=== PATIENT | male | born 1940 | race Caucasian/White ===

== ENCOUNTER → 2016-08-18 | Outpatient (CLI) | payer MEDICARE, OTHER ==
[~2016-08-18] MED LIST: ASPI81TA27 PO; IOHEXOL 350 MG/ML 100ML IJ ONE; LOSA50TA26 PO; READI-CAT 2 (BARIUM SULF)(VANILLA SMOOTHIE) 450ML ONE; SIMV-13 PO; TICA90TA PO; [UNRECOGNIZED DRUG - CODE] PO
[2016-08-18 09:35] VITALS: BP 143/80
[2016-08-18 10:30] VITALS: BP 136/71
== END | disposition home or self-care (01) ==
LOC: Rad HDHVI 08:59
PROVIDERS: ATTEND Internal Medicine Cardiovascular Disease
DX: N40.0 Benign prostatic hyperplasia without lower urinary tract symptoms (principal); I70.8 Atherosclerosis of other arteries
CPT/HCPCS: 74177; 96374; G0463; Q9967

== ENCOUNTER → 2016-10-22 | Outpatient (CLI) | payer MEDICARE, OTHER ==
[~2016-10-22] MED LIST changes: -IOHEXOL 350 MG/ML 100ML IJ ONE; -READI-CAT 2 (BARIUM SULF)(VANILLA SMOOTHIE) 450ML ONE
== END | disposition home or self-care (01) ==
LOC: Rad HDHVI 11:43
PROVIDERS: ATTEND Internal Medicine Cardiovascular Disease
DX: I70.0 Atherosclerosis of aorta (principal); M25.551 Pain in right hip; M47.816 Spondylosis without myelopathy or radiculopathy, lumbar region; M13.851 Other specified arthritis, right hip; I25.10 Atherosclerotic heart disease of native coronary artery without angina pectoris; E78.5 Hyperlipidemia, unspecified; I10 Essential (primary) hypertension; Z95.5 Presence of coronary angioplasty implant and graft; Z95.1 Presence of aortocoronary bypass graft
CPT/HCPCS: 71020

== ENCOUNTER → 2016-11-24 | Outpatient (CLI) | payer MEDICARE, OTHER ==
[~2016-11-24] VITALS: Ht 165.1 cm; Wt 83.0 kg
[2016-11-24 12:26] LABS: Basophils # (auto) 0.1 uL; Basophils % (auto) 0.9 % (0.0-2.0); CONDITION Y; Eosinophils # (auto) 0 uL; Eosinophils % (auto) 0.6 % (0.0-7.0); Hematocrit 39.8 % (41.0-53.0); Hemoglobin 13.6 g/dL (13.5-17.5); Lymphocytes # (auto) 1.2 uL; Lymphocytes % (auto) 17.8 % (10.0-50.0); Mean Corpuscular Hemoglobin 31.4 pg (28.0-32.0); Mean Corpuscular Hgb Conc. 34.3 g/dL (32.0-36.0); Mean Corpuscular Volume 91.4 fL (80.0-100.0); Monocytes # (auto) 0.5 uL; Monocytes % (auto) 6.7 % (0.0-12.0); Neutrophils # (auto) 5.1 uL; Platelet Count (auto) 152 10^3/uL (140-450); White Blood Cell 6.9 10^3/uL (4.4-10.8)
[2016-11-24 13:11] LABS: Albumin 3.7 g/dL (3.4-5.0); BUN/Creatinine Ratio 22.5; Bilirubin, Total 0.6 mg/dL (0.2-1.0); Calcium 9.2 mg/dL (8.5-10.1); Potassium 4.1 mmol/L (3.5-5.1); Total Protein 7.3 g/dL (6.4-8.2)
== END | disposition home or self-care (01) ==
LOC: Rad HDHVI 08:35
PROVIDERS: ATTEND Internal Medicine Cardiovascular Disease
DX: I10 Essential (primary) hypertension (principal); E78.00 Pure hypercholesterolemia, unspecified; E11.9 Type 2 diabetes mellitus without complications; R97.20 Elevated prostate specific antigen [PSA]; R53.81 Other malaise; E03.9 Hypothyroidism, unspecified; D64.9 Anemia, unspecified; E55.9 Vitamin D deficiency, unspecified; I25.2 Old myocardial infarction; I25.10 Atherosclerotic heart disease of native coronary artery without angina pectoris; K74.1 Hepatic sclerosis
CPT/HCPCS: 36415; 78452; 80053; 80061; 82306; 82607; 83036; 84153; 84402; 84403; 84439; 84443; 85025; 93017; 96374; A9500

== ENCOUNTER → 2017-03-17 | Outpatient (CLI) | payer MEDICARE, OTHER ==
[~2017-03-17] VITALS: Ht 165.1 cm; Wt 81.2 kg
== END | disposition home or self-care (01) ==
LOC: Rad HDHVI 13:47
PROVIDERS: ATTEND Internal Medicine Cardiovascular Disease
DX: I25.2 Old myocardial infarction (principal); I25.10 Atherosclerotic heart disease of native coronary artery without angina pectoris; Z95.1 Presence of aortocoronary bypass graft; I50.9 Heart failure, unspecified
CPT/HCPCS: 78452; 93017; 96374; A9500

== ENCOUNTER → 2017-04-13 | Outpatient (CLI) | payer MEDICARE, OTHER ==
[~2017-04-13] MED LIST changes: +OMEP20CA74 PO; +TRAM50TA2 PO; +[UNRECOGNIZED DRUG - CODE] PO
[2017-04-13 08:55] VITALS: BP 129/64
[2017-04-13 09:30] VITALS: BP 141/68
[2017-04-13 13:15] LABS: Basophils # (auto) 0 uL; Basophils % (auto) 0.3 % (0.0-2.0); Eosinophils # (auto) 0 uL; Eosinophils % (auto) 0.4 % (0.0-7.0); Hemoglobin 13.6 g/dL (13.5-17.5); Lymphocytes # (auto) 0.9 uL; Lymphocytes % (auto) 13.7 % (10.0-50.0); Mean Corpuscular Hgb Conc. 34.9 g/dL (32.0-36.0); Mean Corpuscular Volume 91.7 fL (80.0-100.0); Mean Platelet Volume 10.5 fL (6.9-10.8); Monocytes # (auto) 0.6 uL; Monocytes % (auto) 9.5 % (0.0-12.0); Neutrophils # (auto) 4.9 uL; Neutrophils % (auto) 76.1 % (37.0-80.0); Nucleated Red Blood Cells % 0.3 %; Platelet Count (auto) 103 10^3/uL (140-450); White Blood Cell 6.5 10^3/uL (4.4-10.8)
[2017-04-13 13:25] LABS: Potassium 4.2 mmol/L (3.5-5.1)
[2017-04-13 13:29] LABS: INR 0.98 (0.9-1.15); Partial Thromboplastin Time 26.9 sec (22.64-33.71); Prothrombin Time 10.7 sec (9.37-12.3)
[2017-04-13 13:31] LABS: BUN/Creatinine Ratio 17.6; Calcium 8.5 mg/dL (8.5-10.1)
== END | disposition home or self-care (01) ==
LOC: Rad HDHVI 08:36
PROVIDERS: ATTEND Internal Medicine Cardiovascular Disease
DX: Z01.818 Encounter for other preprocedural examination (principal); I10 Essential (primary) hypertension; D64.9 Anemia, unspecified; E78.00 Pure hypercholesterolemia, unspecified; R79.1 Abnormal coagulation profile; Z95.1 Presence of aortocoronary bypass graft
CPT/HCPCS: 36415; 71020; 80048; 85025; 85610; 85730; 93005; G0463

== ENCOUNTER → 2017-07-24 | Outpatient (CLI) | payer MEDICARE, OTHER ==
[~2017-07-24] MED LIST changes: +CHOL20007 OR; +CLOP75TA28 PO; +DEXL60CA3 PO; +OMEG100078 PO; -SIMV-13 PO; -[UNRECOGNIZED DRUG - CODE] PO
[2017-07-24 09:00] VITALS: BP 139/70
[2017-07-24 09:30] VITALS: BP 151/68
[2017-07-24 12:11] LABS: Basophils # (auto) 0.1 uL; Basophils % (auto) 1.1 % (0.0-2.0); Eosinophils # (auto) 0 uL; Eosinophils % (auto) 0.6 % (0.0-7.0); Hematocrit 38.1 % (41.0-53.0); Hemoglobin 12.7 g/dL (13.5-17.5); Lymphocytes # (auto) 1.1 uL; Lymphocytes % (auto) 18.7 % (10.0-50.0); Mean Corpuscular Hemoglobin 30.9 pg (28.0-32.0); Mean Corpuscular Hgb Conc. 33.3 g/dL (32.0-36.0); Mean Corpuscular Volume 92.9 fL (80.0-100.0); Monocytes # (auto) 0.6 uL; Monocytes % (auto) 10.1 % (0.0-12.0); Neutrophils # (auto) 4.2 uL; Neutrophils % (auto) 69.5 % (37.0-80.0); Nucleated Red Blood Cells % 0.3 %; Platelet Count (auto) 90 10^3/uL (140-450); Red Cell Distribution Width 12.7 % (11.8-14.3)
[2017-07-24 12:20] LABS: INR 1.02 (0.9-1.15); Partial Thromboplastin Time 27.2 sec (22.64-33.71); Prothrombin Time 11.1 sec (9.37-12.3)
[2017-07-24 13:00] LABS: BUN/Creatinine Ratio 15.4; Calcium 8.5 mg/dL (8.5-10.1); Potassium 4.2 mmol/L (3.5-5.1)
== END | disposition home or self-care (01) ==
LOC: Rad HDHVI 08:49
PROVIDERS: ATTEND Internal Medicine Cardiovascular Disease
DX: Z01.818 Encounter for other preprocedural examination (principal); D64.9 Anemia, unspecified; I10 Essential (primary) hypertension; R79.1 Abnormal coagulation profile
CPT/HCPCS: 36415; 71046; 80048; 85025; 85610; 85730; 93005; G0463

== ENCOUNTER 2017-07-28 10:48 | Day surgery (SDC) | payer MEDICARE, OTHER ==
[~2017-07-28] VITALS: Ht 165.1 cm; Wt 80.3 kg
[~2017-07-28 10:48] MED LIST changes: -OMEP20CA74 PO; -TICA90TA PO; -TRAM50TA2 PO
[2017-07-28] MEDS ORDERED: IODIXANOL 320MG/ML 100ML BTL IV ONE (11:18)
[2017-07-28] MEDS ORDERED: LIDOCAINE HCL 2 %PF INJ 10ML AMP IJ ONE (11:21)
[2017-07-28] MEDS ORDERED: fentaNYL CITRATE 100 MCG/2 ML VL ONE (12:29)
[2017-07-28] MEDS ORDERED: ANGIOMAX 250 MG VIAL IV ONE (12:29)
[2017-07-28] MEDS ORDERED: MIDAZOLAM HCL 1MG/1ML-2 ML VIAL ONE ×2 (12:30→13:39)
[2017-07-28] MEDS ORDERED: SODIUM CHL 0.9% 0 ML ONE (12:30)
[2017-07-28] MEDS ORDERED: ENOXAPARIN SOD 30 MG/0.3 ML SYRINGE ONE (13:36)
[2017-07-28] MEDS ORDERED: RIVAROXABAN 10 MG PO STA (14:05)
[2017-07-28] MEDS ORDERED: RIVAROXABAN 10 MG TAB PO STA (14:11)
[2017-07-28] MEDS ORDERED: AMIODARONE HCL 200 MG TAB PO ONE (14:15)
[2017-07-28] MEDS: SODIUM CHLORIDE 0.9% 1,000 ML IV SCH ×2 (14:28→14:37)
== END 2017-07-28 16:00 | disposition home or self-care (01) ==
LOC: CATH 10:48
PROVIDERS: ATTEND Internal Medicine Cardiovascular Disease
DX: I25.10 Atherosclerotic heart disease of native coronary artery without angina pectoris (principal); Z95.1 Presence of aortocoronary bypass graft; I48.91 Unspecified atrial fibrillation; E66.9 Obesity, unspecified; I10 Essential (primary) hypertension; E78.5 Hyperlipidemia, unspecified; I25.2 Old myocardial infarction
CPT/HCPCS: 92960; 93459; C1760; C1894; J1644; J1650; J2250; J3010; J7030; Q9967; 99152

== ENCOUNTER 2017-07-28 22:39 | Emergency (ER) | payer MEDICARE, OTHER ==
[~2017-07-28] VITALS: Ht 167.6 cm; Wt 80.3 kg
[2017-07-28 23:25] LABS: Basophils # (auto) 0.1 uL; Eosinophils # (auto) 0.1 uL; Eosinophils % (auto) 0.7 % (0.0-7.0); Hematocrit 40.3 % (41.0-53.0); Hemoglobin 13.8 g/dL (13.5-17.5); Lymphocytes # (auto) 1.6 uL; Lymphocytes % (auto) 20.7 % (10.0-50.0); Mean Corpuscular Hemoglobin 31.5 pg (28.0-32.0); Mean Corpuscular Hgb Conc. 34.2 g/dL (32.0-36.0); Mean Corpuscular Volume 92.1 fL (80.0-100.0); Monocytes # (auto) 0.7 uL; Monocytes % (auto) 9.7 % (0.0-12.0); Neutrophils # (auto) 5.2 uL; Neutrophils % (auto) 67.9 % (37.0-80.0); Nucleated Red Blood Cells % 0.1 %; Platelet Count (auto) 103 10^3/uL (140-450); Red Blood Cells 4.37 10^6/uL (4.5-5.90); Red Cell Distribution Width 12.9 % (11.8-14.3); White Blood Cell 7.7 10^3/uL (4.4-10.8)
[2017-07-28 23:34] LABS: INR 1.18 (0.9-1.15); Partial Thromboplastin Time 34.1 sec (22.64-33.71); Prothrombin Time 12.9 sec (9.37-12.3)
[2017-07-28 23:41] LABS: Albumin 3.8 g/dL (3.4-5.0); BUN/Creatinine Ratio 13.4; Bilirubin, Total 0.4 mg/dL (0.2-1.0); Calcium 8.3 mg/dL (8.5-10.1); Potassium 3.7 mmol/L (3.5-5.1); Total Protein 7.3 g/dL (6.4-8.2)
[2017-07-29 05:40] VITALS: BP 153/71
== END 2017-07-29 05:40 | disposition home or self-care (01) ==
LOC: ER 22:43
DX: L76.22 Postprocedural hemorrhage of skin and subcutaneous tissue following other procedure (principal); I25.2 Old myocardial infarction; E78.5 Hyperlipidemia, unspecified; Z86.73 Personal history of transient ischemic attack (TIA), and cerebral infarction without residual deficits; Z95.1 Presence of aortocoronary bypass graft; Z98.61 Coronary angioplasty status; Z79.899 Other long term (current) drug therapy
CPT/HCPCS: 36415; 80053; 85025; 85610; 85730

== ENCOUNTER → 2017-08-19 | Outpatient (CLI) | payer MEDICARE, OTHER | END | disposition home or self-care (01) | LOC: Rad HDHVI 13:01 | PROVIDERS: ATTEND Internal Medicine Cardiovascular Disease | DX: I67.2 Cerebral atherosclerosis (principal); I67.82 Cerebral ischemia; I10 Essential (primary) hypertension; E78.5 Hyperlipidemia, unspecified; Z79.899 Other long term (current) drug therapy | CPT/HCPCS: 70450 ==

== ENCOUNTER → 2017-12-21 | Outpatient (CLI) | payer MEDICARE, OTHER ==
[2017-12-21 11:00] VITALS: BP 161/86
[2017-12-21 11:05] VITALS: BP 167/99
[2017-12-21 12:10] VITALS: BP 161/86
[2017-12-21 14:58] VITALS: BP 167/99
== END | disposition home or self-care (01) ==
LOC: CHF HDHVI 09:47
PROVIDERS: ATTEND Internal Medicine Cardiovascular Disease
DX: I25.118 Atherosclerotic heart disease of native coronary artery with other forms of angina pectoris (principal); I50.33 Acute on chronic diastolic (congestive) heart failure
CPT/HCPCS: G0166; G0463

== ENCOUNTER → 2017-12-22 | Outpatient (CLI) | payer MEDICARE, OTHER ==
[2017-12-22 10:15] VITALS: BP 141/69
[2017-12-22 11:22] VITALS: BP 151/92
== END | disposition home or self-care (01) ==
LOC: CHF HDHVI 09:52
PROVIDERS: ATTEND Internal Medicine Cardiovascular Disease
DX: I25.118 Atherosclerotic heart disease of native coronary artery with other forms of angina pectoris (principal); I50.33 Acute on chronic diastolic (congestive) heart failure; I50.23 Acute on chronic systolic (congestive) heart failure
CPT/HCPCS: G0166

== ENCOUNTER → 2017-12-23 | Outpatient (CLI) | payer MEDICARE, OTHER ==
[2017-12-23 10:05] VITALS: BP 158/75
[2017-12-23 11:16] VITALS: BP 147/88
== END | disposition home or self-care (01) ==
LOC: CHF HDHVI 09:55
PROVIDERS: ATTEND Internal Medicine Cardiovascular Disease
DX: I25.118 Atherosclerotic heart disease of native coronary artery with other forms of angina pectoris (principal); I11.0 Hypertensive heart disease with heart failure; I50.43 Acute on chronic combined systolic (congestive) and diastolic (congestive) heart failure
CPT/HCPCS: G0166

== ENCOUNTER → 2017-12-24 | Outpatient (CLI) | payer MEDICARE, OTHER ==
[2017-12-24 10:34] VITALS: BP 134/73
[2017-12-24 11:44] VITALS: BP 142/85
== END | disposition home or self-care (01) ==
LOC: CHF HDHVI 09:53
PROVIDERS: ATTEND Internal Medicine Cardiovascular Disease
DX: I25.118 Atherosclerotic heart disease of native coronary artery with other forms of angina pectoris (principal); I50.33 Acute on chronic diastolic (congestive) heart failure; I50.23 Acute on chronic systolic (congestive) heart failure
CPT/HCPCS: G0166

== ENCOUNTER → 2017-12-25 | Outpatient (CLI) | payer MEDICARE, OTHER ==
[2017-12-25 10:17] VITALS: BP 151/80
[2017-12-25 11:27] VITALS: BP 152/81
== END | disposition home or self-care (01) ==
LOC: CHF HDHVI 09:51
PROVIDERS: ATTEND Internal Medicine Cardiovascular Disease
DX: I25.118 Atherosclerotic heart disease of native coronary artery with other forms of angina pectoris (principal); I50.43 Acute on chronic combined systolic (congestive) and diastolic (congestive) heart failure
CPT/HCPCS: G0166

== ENCOUNTER → 2017-12-28 | Outpatient (CLI) | payer MEDICARE, OTHER ==
[2017-12-28 10:09] VITALS: BP 148/80
[2017-12-28 11:13] VITALS: BP 142/79
== END | disposition home or self-care (01) ==
LOC: CHF HDHVI 09:50
PROVIDERS: ATTEND Internal Medicine Cardiovascular Disease
DX: I25.118 Atherosclerotic heart disease of native coronary artery with other forms of angina pectoris (principal); I11.0 Hypertensive heart disease with heart failure; I50.33 Acute on chronic diastolic (congestive) heart failure; I63.9 Cerebral infarction, unspecified; Z98.61 Coronary angioplasty status; Z79.82 Long term (current) use of aspirin; Z79.899 Other long term (current) drug therapy
CPT/HCPCS: G0166

== ENCOUNTER → 2017-12-29 | Outpatient (CLI) | payer MEDICARE, OTHER ==
[2017-12-29 09:59] VITALS: BP 136/85
[2017-12-29 11:05] VITALS: BP 131/84
== END | disposition home or self-care (01) ==
LOC: CHF HDHVI 09:50
PROVIDERS: ATTEND Internal Medicine Cardiovascular Disease
DX: I25.118 Atherosclerotic heart disease of native coronary artery with other forms of angina pectoris (principal); I50.43 Acute on chronic combined systolic (congestive) and diastolic (congestive) heart failure; I63.9 Cerebral infarction, unspecified
CPT/HCPCS: G0166

== ENCOUNTER → 2017-12-30 | Outpatient (CLI) | payer MEDICARE, OTHER ==
[2017-12-30 09:54] VITALS: BP 146/82
[2017-12-30 11:05] VITALS: BP 145/85
== END | disposition home or self-care (01) ==
LOC: CHF HDHVI 09:48
PROVIDERS: ATTEND Internal Medicine Cardiovascular Disease
DX: I25.118 Atherosclerotic heart disease of native coronary artery with other forms of angina pectoris (principal); I50.43 Acute on chronic combined systolic (congestive) and diastolic (congestive) heart failure
CPT/HCPCS: G0166

== ENCOUNTER → 2017-12-31 | Outpatient (CLI) | payer MEDICARE, OTHER ==
[2017-12-31 09:55] VITALS: BP 140/70
[2017-12-31 11:05] VITALS: BP 148/74
== END | disposition home or self-care (01) ==
LOC: CHF HDHVI 09:54
PROVIDERS: ATTEND Internal Medicine Cardiovascular Disease
DX: I25.118 Atherosclerotic heart disease of native coronary artery with other forms of angina pectoris (principal); I50.43 Acute on chronic combined systolic (congestive) and diastolic (congestive) heart failure
CPT/HCPCS: G0166

== ENCOUNTER → 2018-01-01 | Outpatient (CLI) | payer MEDICARE, OTHER ==
[2018-01-01 09:58] VITALS: BP 152/74
[2018-01-01 11:02] VITALS: BP 142/73
== END | disposition home or self-care (01) ==
LOC: CHF HDHVI 09:45
PROVIDERS: ATTEND Internal Medicine Cardiovascular Disease
DX: I25.118 Atherosclerotic heart disease of native coronary artery with other forms of angina pectoris (principal); I11.0 Hypertensive heart disease with heart failure; I50.43 Acute on chronic combined systolic (congestive) and diastolic (congestive) heart failure; Z98.61 Coronary angioplasty status; Z87.891 Personal history of nicotine dependence
CPT/HCPCS: G0166

== ENCOUNTER → 2018-01-04 | Outpatient (CLI) | payer MEDICARE, OTHER ==
[2018-01-04 09:57] VITALS: BP 144/73
[2018-01-04 10:58] VITALS: BP 148/79
== END | disposition home or self-care (01) ==
LOC: CHF HDHVI 10:02
PROVIDERS: ATTEND Internal Medicine Cardiovascular Disease
DX: I25.118 Atherosclerotic heart disease of native coronary artery with other forms of angina pectoris (principal); I11.0 Hypertensive heart disease with heart failure; I50.43 Acute on chronic combined systolic (congestive) and diastolic (congestive) heart failure; I63.9 Cerebral infarction, unspecified; Z98.61 Coronary angioplasty status
CPT/HCPCS: G0166

== ENCOUNTER → 2018-01-05 | Outpatient (CLI) | payer MEDICARE, OTHER ==
[2018-01-05 09:58] VITALS: BP 154/77
[2018-01-05 11:10] VITALS: BP 160/87
== END | disposition home or self-care (01) ==
LOC: CHF HDHVI 09:48
PROVIDERS: ATTEND Internal Medicine Cardiovascular Disease
DX: I25.118 Atherosclerotic heart disease of native coronary artery with other forms of angina pectoris (principal); I11.0 Hypertensive heart disease with heart failure; I50.43 Acute on chronic combined systolic (congestive) and diastolic (congestive) heart failure; I63.9 Cerebral infarction, unspecified; Z98.61 Coronary angioplasty status
CPT/HCPCS: G0166

== ENCOUNTER → 2018-01-06 | Outpatient (CLI) | payer MEDICARE, OTHER ==
[2018-01-06 09:56] VITALS: BP 137/77
[2018-01-06 11:05] VITALS: BP 159/86
== END | disposition home or self-care (01) ==
LOC: CHF HDHVI 09:59
PROVIDERS: ATTEND Internal Medicine Cardiovascular Disease
DX: I25.118 Atherosclerotic heart disease of native coronary artery with other forms of angina pectoris (principal); I50.43 Acute on chronic combined systolic (congestive) and diastolic (congestive) heart failure; I63.9 Cerebral infarction, unspecified; Z98.61 Coronary angioplasty status
CPT/HCPCS: G0166

== ENCOUNTER → 2018-01-07 | Outpatient (CLI) | payer MEDICARE, OTHER ==
[2018-01-07 09:55] VITALS: BP 147/80
[2018-01-07 11:01] VITALS: BP 164/78
== END | disposition home or self-care (01) ==
LOC: CHF HDHVI 10:00
PROVIDERS: ATTEND Internal Medicine Cardiovascular Disease
DX: I25.118 Atherosclerotic heart disease of native coronary artery with other forms of angina pectoris (principal); I11.0 Hypertensive heart disease with heart failure; I50.41 Acute combined systolic (congestive) and diastolic (congestive) heart failure; I63.9 Cerebral infarction, unspecified; Z98.61 Coronary angioplasty status
CPT/HCPCS: G0166

== ENCOUNTER → 2018-01-08 | Outpatient (CLI) | payer MEDICARE, OTHER ==
[2018-01-08 10:19] VITALS: BP 127/72
[2018-01-08 11:28] VITALS: BP 146/85
== END | disposition home or self-care (01) ==
LOC: CHF HDHVI 10:02
PROVIDERS: ATTEND Internal Medicine Cardiovascular Disease
DX: I25.118 Atherosclerotic heart disease of native coronary artery with other forms of angina pectoris (principal); I11.0 Hypertensive heart disease with heart failure; I50.41 Acute combined systolic (congestive) and diastolic (congestive) heart failure; I63.9 Cerebral infarction, unspecified; Z98.61 Coronary angioplasty status
CPT/HCPCS: G0166

== ENCOUNTER → 2018-01-12 | Outpatient (CLI) | payer MEDICARE, OTHER ==
[2018-01-12 09:58] VITALS: BP 122/60
[2018-01-12 10:59] VITALS: BP 139/74
== END | disposition home or self-care (01) ==
LOC: CHF HDHVI 09:50
PROVIDERS: ATTEND Internal Medicine Cardiovascular Disease
DX: I25.118 Atherosclerotic heart disease of native coronary artery with other forms of angina pectoris (principal); I11.0 Hypertensive heart disease with heart failure; I50.43 Acute on chronic combined systolic (congestive) and diastolic (congestive) heart failure; I63.9 Cerebral infarction, unspecified; Z98.61 Coronary angioplasty status
CPT/HCPCS: G0166

== ENCOUNTER → 2018-01-13 | Outpatient (CLI) | payer MEDICARE, OTHER ==
[2018-01-13 09:55] VITALS: BP 122/67
[2018-01-13 11:05] VITALS: BP 141/68
== END | disposition home or self-care (01) ==
LOC: CHF HDHVI 09:50
PROVIDERS: ATTEND Internal Medicine Cardiovascular Disease
DX: I25.118 Atherosclerotic heart disease of native coronary artery with other forms of angina pectoris (principal); I50.43 Acute on chronic combined systolic (congestive) and diastolic (congestive) heart failure; I63.9 Cerebral infarction, unspecified
CPT/HCPCS: G0166

== ENCOUNTER → 2018-01-15 | Outpatient (CLI) | payer MEDICARE, OTHER ==
[2018-01-15 10:15] VITALS: BP 149/71
[2018-01-15 11:19] VITALS: BP 135/78
== END | disposition home or self-care (01) ==
LOC: CHF HDHVI 09:50
PROVIDERS: ATTEND Internal Medicine Cardiovascular Disease
DX: I25.118 Atherosclerotic heart disease of native coronary artery with other forms of angina pectoris (principal); I11.0 Hypertensive heart disease with heart failure; I50.43 Acute on chronic combined systolic (congestive) and diastolic (congestive) heart failure; I63.9 Cerebral infarction, unspecified; Z98.61 Coronary angioplasty status
CPT/HCPCS: G0166

== ENCOUNTER → 2018-01-18 | Outpatient (CLI) | payer MEDICARE, OTHER ==
[2018-01-18 09:56] VITALS: BP 138/68
[2018-01-18 10:56] VITALS: BP 138/77
== END | disposition home or self-care (01) ==
LOC: CHF HDHVI 10:07
PROVIDERS: ATTEND Internal Medicine Cardiovascular Disease
DX: I25.118 Atherosclerotic heart disease of native coronary artery with other forms of angina pectoris (principal); I50.43 Acute on chronic combined systolic (congestive) and diastolic (congestive) heart failure; I63.9 Cerebral infarction, unspecified; Z98.61 Coronary angioplasty status
CPT/HCPCS: G0166

== ENCOUNTER → 2018-01-19 | Outpatient (CLI) | payer MEDICARE, OTHER ==
[2018-01-19 09:55] VITALS: BP 167/76
[2018-01-19 10:55] VITALS: BP 159/81
== END | disposition home or self-care (01) ==
LOC: CHF HDHVI 09:47
PROVIDERS: ATTEND Internal Medicine Cardiovascular Disease
DX: I25.118 Atherosclerotic heart disease of native coronary artery with other forms of angina pectoris (principal); I63.9 Cerebral infarction, unspecified; I11.0 Hypertensive heart disease with heart failure; I50.43 Acute on chronic combined systolic (congestive) and diastolic (congestive) heart failure
CPT/HCPCS: G0166

== ENCOUNTER → 2018-01-20 | Outpatient (CLI) | payer MEDICARE, OTHER ==
[2018-01-20 09:50] VITALS: BP 145/74
[2018-01-20 11:00] VITALS: BP 160/76
== END | disposition home or self-care (01) ==
LOC: CHF HDHVI 10:17
PROVIDERS: ATTEND Internal Medicine Cardiovascular Disease
DX: I25.118 Atherosclerotic heart disease of native coronary artery with other forms of angina pectoris (principal); I11.0 Hypertensive heart disease with heart failure; I50.43 Acute on chronic combined systolic (congestive) and diastolic (congestive) heart failure; I63.9 Cerebral infarction, unspecified; Z98.61 Coronary angioplasty status
CPT/HCPCS: G0166

== ENCOUNTER → 2018-01-21 | Outpatient (CLI) | payer MEDICARE, OTHER ==
[2018-01-21 09:53] VITALS: BP 137/72
[2018-01-21 10:58] VITALS: BP 151/82
== END | disposition home or self-care (01) ==
LOC: CHF HDHVI 09:48
PROVIDERS: ATTEND Internal Medicine Cardiovascular Disease
DX: I25.118 Atherosclerotic heart disease of native coronary artery with other forms of angina pectoris (principal); I11.0 Hypertensive heart disease with heart failure; I50.43 Acute on chronic combined systolic (congestive) and diastolic (congestive) heart failure; I63.9 Cerebral infarction, unspecified; Z98.61 Coronary angioplasty status
CPT/HCPCS: G0166

== ENCOUNTER → 2018-01-22 | Outpatient (CLI) | payer MEDICARE, OTHER ==
[2018-01-22 10:34] VITALS: BP 135/72
[2018-01-22 11:42] VITALS: BP 155/77
== END | disposition home or self-care (01) ==
LOC: CHF HDHVI 10:27
PROVIDERS: ATTEND Internal Medicine Cardiovascular Disease
DX: I25.118 Atherosclerotic heart disease of native coronary artery with other forms of angina pectoris (principal); I11.0 Hypertensive heart disease with heart failure; I50.42 Chronic combined systolic (congestive) and diastolic (congestive) heart failure; I63.9 Cerebral infarction, unspecified; Z98.61 Coronary angioplasty status
CPT/HCPCS: G0166

== ENCOUNTER → 2018-01-25 | Outpatient (CLI) | payer MEDICARE, OTHER ==
[2018-01-25 10:05] VITALS: BP 136/76
[2018-01-25 11:05] VITALS: BP 131/74
== END | disposition home or self-care (01) ==
LOC: CHF HDHVI 09:55
PROVIDERS: ATTEND Internal Medicine Cardiovascular Disease
DX: I25.118 Atherosclerotic heart disease of native coronary artery with other forms of angina pectoris (principal); I50.43 Acute on chronic combined systolic (congestive) and diastolic (congestive) heart failure; Z98.61 Coronary angioplasty status; Z86.73 Personal history of transient ischemic attack (TIA), and cerebral infarction without residual deficits
CPT/HCPCS: G0166

== ENCOUNTER → 2018-01-26 | Outpatient (CLI) | payer MEDICARE, OTHER ==
[2018-01-26 09:51] VITALS: BP 130/73
[2018-01-26 10:58] VITALS: BP 154/80
== END | disposition home or self-care (01) ==
LOC: CHF HDHVI 09:47
PROVIDERS: ATTEND Internal Medicine Cardiovascular Disease
DX: I25.118 Atherosclerotic heart disease of native coronary artery with other forms of angina pectoris (principal); I50.43 Acute on chronic combined systolic (congestive) and diastolic (congestive) heart failure; Z98.61 Coronary angioplasty status; Z86.73 Personal history of transient ischemic attack (TIA), and cerebral infarction without residual deficits
CPT/HCPCS: G0166

== ENCOUNTER → 2018-01-27 | Outpatient (CLI) | payer MEDICARE, OTHER ==
[2018-01-27 09:54] VITALS: BP 156/89
[2018-01-27 11:00] VITALS: BP 142/74
== END | disposition home or self-care (01) ==
LOC: CHF HDHVI 09:48
PROVIDERS: ATTEND Internal Medicine Cardiovascular Disease
DX: I25.118 Atherosclerotic heart disease of native coronary artery with other forms of angina pectoris (principal); I50.43 Acute on chronic combined systolic (congestive) and diastolic (congestive) heart failure; I63.9 Cerebral infarction, unspecified
CPT/HCPCS: G0166

== ENCOUNTER → 2018-01-28 | Outpatient (CLI) | payer MEDICARE, OTHER ==
[2018-01-28 10:05] VITALS: BP 132/78
[2018-01-28 11:14] VITALS: BP 160/76
== END | disposition home or self-care (01) ==
LOC: CHF HDHVI 09:41
PROVIDERS: ATTEND Internal Medicine Cardiovascular Disease
DX: I25.118 Atherosclerotic heart disease of native coronary artery with other forms of angina pectoris (principal); I50.43 Acute on chronic combined systolic (congestive) and diastolic (congestive) heart failure; I63.9 Cerebral infarction, unspecified
CPT/HCPCS: G0166

== ENCOUNTER → 2018-01-29 | Outpatient (CLI) | payer MEDICARE, OTHER ==
[2018-01-29 10:26] VITALS: BP 131/81
[2018-01-29 11:36] VITALS: BP 160/82
== END | disposition home or self-care (01) ==
LOC: CHF HDHVI 10:29
PROVIDERS: ATTEND Internal Medicine Cardiovascular Disease
DX: I25.118 Atherosclerotic heart disease of native coronary artery with other forms of angina pectoris (principal); I50.43 Acute on chronic combined systolic (congestive) and diastolic (congestive) heart failure; I63.9 Cerebral infarction, unspecified
CPT/HCPCS: G0166

== ENCOUNTER → 2018-02-01 | Outpatient (CLI) | payer MEDICARE, OTHER ==
[2018-02-01 09:58] VITALS: BP 149/73
[2018-02-01 11:08] VITALS: BP 147/71
== END | disposition home or self-care (01) ==
LOC: CHF HDHVI 10:01
PROVIDERS: ATTEND Internal Medicine Cardiovascular Disease
DX: I25.118 Atherosclerotic heart disease of native coronary artery with other forms of angina pectoris (principal); I50.43 Acute on chronic combined systolic (congestive) and diastolic (congestive) heart failure; I63.9 Cerebral infarction, unspecified
CPT/HCPCS: G0166

== ENCOUNTER → 2018-02-02 | Outpatient (CLI) | payer MEDICARE, OTHER ==
[2018-02-02 09:59] VITALS: BP 152/78
[2018-02-02 11:05] VITALS: BP 153/82
== END | disposition home or self-care (01) ==
LOC: CHF HDHVI 09:54
PROVIDERS: ATTEND Internal Medicine Cardiovascular Disease
DX: I25.118 Atherosclerotic heart disease of native coronary artery with other forms of angina pectoris (principal); I50.42 Chronic combined systolic (congestive) and diastolic (congestive) heart failure; I21.9 Acute myocardial infarction, unspecified; I63.9 Cerebral infarction, unspecified
CPT/HCPCS: G0166

== ENCOUNTER → 2018-02-03 | Outpatient (CLI) | payer MEDICARE, OTHER ==
[2018-02-03 11:30] VITALS: BP 162/81
[2018-02-03 12:37] VITALS: BP 159/89
== END | disposition home or self-care (01) ==
LOC: CHF HDHVI 09:43
PROVIDERS: ATTEND Internal Medicine Cardiovascular Disease
DX: I25.118 Atherosclerotic heart disease of native coronary artery with other forms of angina pectoris (principal); I50.43 Acute on chronic combined systolic (congestive) and diastolic (congestive) heart failure; I63.9 Cerebral infarction, unspecified
CPT/HCPCS: G0166

== ENCOUNTER → 2018-02-04 | Outpatient (CLI) | payer MEDICARE, OTHER ==
[2018-02-04 09:56] VITALS: BP 160/85
[2018-02-04 11:01] VITALS: BP 161/78
== END | disposition home or self-care (01) ==
LOC: CHF HDHVI 09:52
PROVIDERS: ATTEND Internal Medicine Cardiovascular Disease
DX: I25.118 Atherosclerotic heart disease of native coronary artery with other forms of angina pectoris (principal); I50.43 Acute on chronic combined systolic (congestive) and diastolic (congestive) heart failure; Z98.61 Coronary angioplasty status; Z86.73 Personal history of transient ischemic attack (TIA), and cerebral infarction without residual deficits; Z87.891 Personal history of nicotine dependence
CPT/HCPCS: G0166

== ENCOUNTER → 2018-02-05 | Outpatient (CLI) | payer MEDICARE, OTHER ==
[2018-02-05 10:32] VITALS: BP 140/81
[2018-02-05 11:37] VITALS: BP 156/74
== END | disposition home or self-care (01) ==
LOC: CHF HDHVI 10:39
PROVIDERS: ATTEND Internal Medicine Cardiovascular Disease
DX: I25.118 Atherosclerotic heart disease of native coronary artery with other forms of angina pectoris (principal); I11.0 Hypertensive heart disease with heart failure; I50.43 Acute on chronic combined systolic (congestive) and diastolic (congestive) heart failure; E78.5 Hyperlipidemia, unspecified; I25.2 Old myocardial infarction; Z98.61 Coronary angioplasty status; Z86.73 Personal history of transient ischemic attack (TIA), and cerebral infarction without residual deficits
CPT/HCPCS: G0166

== ENCOUNTER → 2018-02-08 | Outpatient (CLI) | payer MEDICARE, OTHER ==
[2018-02-08 10:03] VITALS: BP 145/85
[2018-02-08 11:15] VITALS: BP 156/75
== END | disposition home or self-care (01) ==
LOC: Rad HDHVI 09:41
PROVIDERS: ATTEND Internal Medicine Cardiovascular Disease
DX: I25.118 Atherosclerotic heart disease of native coronary artery with other forms of angina pectoris (principal); I11.0 Hypertensive heart disease with heart failure; I50.43 Acute on chronic combined systolic (congestive) and diastolic (congestive) heart failure; I63.9 Cerebral infarction, unspecified; Z98.61 Coronary angioplasty status
CPT/HCPCS: G0166

== ENCOUNTER → 2018-02-09 | Outpatient (CLI) | payer MEDICARE, OTHER ==
[2018-02-09 13:14] VITALS: BP 156/86
[2018-02-09 14:19] VITALS: BP 153/81
== END | disposition home or self-care (01) ==
LOC: Rad HDHVI 13:00
PROVIDERS: ATTEND Internal Medicine Cardiovascular Disease
DX: I25.118 Atherosclerotic heart disease of native coronary artery with other forms of angina pectoris (principal); I11.0 Hypertensive heart disease with heart failure; I50.43 Acute on chronic combined systolic (congestive) and diastolic (congestive) heart failure; I63.9 Cerebral infarction, unspecified; Z98.61 Coronary angioplasty status
CPT/HCPCS: G0166

== ENCOUNTER → 2018-05-06 | Outpatient (CLI) | payer MEDICARE, OTHER | END | disposition home or self-care (01) | LOC: Rad HDHVI 08:50 | PROVIDERS: ATTEND Internal Medicine Cardiovascular Disease | DX: I08.8 Other rheumatic multiple valve diseases (principal); I10 Essential (primary) hypertension; I25.5 Ischemic cardiomyopathy; I48.0 Paroxysmal atrial fibrillation | CPT/HCPCS: 93306 ==

== ENCOUNTER → 2018-07-09 | Outpatient (CLI) | payer MEDICARE, OTHER ==
[2018-07-09 15:57] LABS: Basophils # (auto) 0 uL; Basophils % (auto) 0.3 % (0.0-2.0); Calcium 8.9 mg/dL (8.5-10.1); Eosinophils # (auto) 0.1 uL; Eosinophils % (auto) 0.9 % (0.0-7.0); Hematocrit 44.1 % (41.0-53.0); Hemoglobin 14.6 g/dL (13.5-17.5); Lymphocytes # (auto) 1.1 uL; Lymphocytes % (auto) 16.6 % (10.0-50.0); Mean Corpuscular Hemoglobin 30.8 pg (28.0-32.0); Mean Corpuscular Hgb Conc. 33.2 g/dL (32.0-36.0); Mean Corpuscular Volume 92.9 fL (80.0-100.0); Monocytes # (auto) 0.7 uL; Neutrophils # (auto) 4.8 uL; Neutrophils % (auto) 72.2 % (37.0-80.0); Nucleated Red Blood Cells % 0.3 %; Platelet Count (auto) 109 10^3/uL (140-450); Red Blood Cells 4.75 10^6/uL (4.5-5.90); Red Cell Distribution Width 13.5 % (11.8-14.3); White Blood Cell 6.7 10^3/uL (4.4-10.8)
== END | disposition home or self-care (01) ==
LOC: LAB 11:58
PROVIDERS: ATTEND Internal Medicine Cardiovascular Disease
DX: I11.0 Hypertensive heart disease with heart failure (principal); I50.9 Heart failure, unspecified; D64.9 Anemia, unspecified
CPT/HCPCS: 36415; 80048; 83880; 85025

== ENCOUNTER → 2018-11-29 | Outpatient (CLI) | payer MEDICARE, OTHER ==
[~2018-11-29] MED LIST changes: +ASPI-404 PO; -ASPI81TA27 PO
== END | disposition home or self-care (01) ==
LOC: Rad HDHVI 12:20
PROVIDERS: ATTEND Internal Medicine Cardiovascular Disease
DX: Z01.818 Encounter for other preprocedural examination (principal); I70.0 Atherosclerosis of aorta
CPT/HCPCS: 71046

== ENCOUNTER → 2019-04-25 | Outpatient (CLI) | payer MEDICARE, OTHER ==
[~2019-04-25] MED LIST changes: +[UNRECOGNIZED DRUG - CODE] PO; -[UNRECOGNIZED DRUG - CODE] PO
== END | disposition home or self-care (01) ==
LOC: Rad HDHVI 08:57
PROVIDERS: ATTEND Internal Medicine Cardiovascular Disease
DX: I08.8 Other rheumatic multiple valve diseases (principal); I25.2 Old myocardial infarction; I50.23 Acute on chronic systolic (congestive) heart failure; I48.0 Paroxysmal atrial fibrillation
CPT/HCPCS: 93306

== ENCOUNTER → 2019-04-26 | Outpatient (CLI) | payer MEDICARE, OTHER ==
[~2019-04-26] VITALS: Ht 165.1 cm; Wt 85.3 kg
== END | disposition home or self-care (01) ==
LOC: Rad HDHVI 09:02
PROVIDERS: ATTEND Internal Medicine Cardiovascular Disease
DX: I21.9 Acute myocardial infarction, unspecified (principal); R07.9 Chest pain, unspecified; I10 Essential (primary) hypertension; E78.00 Pure hypercholesterolemia, unspecified; Z95.1 Presence of aortocoronary bypass graft
CPT/HCPCS: 78452; 93017; 96374; A9500

== ENCOUNTER → 2019-10-17 | Outpatient (CLI) | payer MEDICARE, OTHER ==
[~2019-10-17] MED LIST changes: +AZIL40TA2 PO; -CHOL20007 OR; +CHOL20007 PO; +PANT40TA2 PO; +RANO500T2 PO; +RIVA10TA PO; +SIMV-13 PO; +TICA90TA PO; +[UNRECOGNIZED DRUG - CODE] TD
[2019-10-17 10:15] VITALS: BP 141/81
[2019-10-17 10:50] VITALS: BP 135/77
[2019-10-17 12:26] LABS: Basophils # (auto) 0.1 10 ^3/uL (0-0.2); Basophils % (auto) 0.8 % (0.0-2.0); Eosinophils # (auto) 0 10 ^3/uL (0-0.8); Eosinophils % (auto) 0.4 % (0.0-7.0); Hematocrit 41.9 % (41.0-53.0); Hemoglobin 14.7 g/dL (13.5-17.5); Lymphocytes # (auto) 1.4 10 ^3/uL (0.4-5.4); Lymphocytes % (auto) 17.3 % (10.0-50.0); Mean Corpuscular Hemoglobin 32.5 pg (28.0-32.0); Mean Corpuscular Hgb Conc. 35.1 g/dL (32.0-36.0); Mean Corpuscular Volume 92.6 fL (80.0-100.0); Monocytes # (auto) 0.8 10 ^3/uL (0-1.3); Monocytes % (auto) 10.3 % (0.0-12.0); Neutrophils # (auto) 5.6 10 ^3/uL (1.6-8.6); Neutrophils % (auto) 71.2 % (37.0-80.0); Nucleated Red Blood Cells % 0.1 %; Platelet Count (auto) 134 10^3/uL (140-450); Red Blood Cells 4.52 10^6/uL (4.5-5.90); Red Cell Distribution Width 13.5 % (11.8-14.3); White Blood Cell 7.9 10^3/uL (4.4-10.8)
[2019-10-17 12:35] LABS: INR 1.26 (0.9-1.15)
[2019-10-17 12:42] LABS: Potassium 3.9 mmol/L (3.5-5.1)
[2019-10-17 16:29] LABS: BUN/Creatinine Ratio 17.8
[2019-10-17 16:30] LABS: Calcium 8.6 mg/dL (8.5-10.1)
== END | disposition home or self-care (01) ==
LOC: Rad HDHVI 10:05
PROVIDERS: ATTEND Internal Medicine Cardiovascular Disease
DX: I50.9 Heart failure, unspecified (principal); Z01.812 Encounter for preprocedural laboratory examination; I10 Essential (primary) hypertension; I20.9 Angina pectoris, unspecified; I48.91 Unspecified atrial fibrillation; M79.89 Other specified soft tissue disorders
CPT/HCPCS: 36415; 71046; 80048; 85025; 85610; 85730; 93005; G0463

== ENCOUNTER 2019-10-20 07:02 | Inpatient (IN) | payer MEDICARE, OTHER ==
[~2019-10-20] VITALS: Ht 317.5 cm; Wt 81.5 kg
[~2019-10-20 07:02] MED LIST changes: -CLOP75TA28 PO; -DEXL60CA3 PO; -LOSA50TA26 PO; -TICA90TA PO
[2019-10-20] MEDS ORDERED: MIDAZOLAM HCL 1MG/1ML-2 ML VIAL ONE (08:27)
[2019-10-20] MEDS ORDERED: ANGIOMAX 250 MG VIAL IV ONE (08:27)
[2019-10-20] MEDS ORDERED: fentaNYL CITRATE 100 MCG/2 ML VL ONE (08:27)
[2019-10-20] MEDS ORDERED: SODIUM CHL 0.9% 50 ML ONE (08:27)
[2019-10-20] MEDS ORDERED: IOHEXOL 350 MG/ML 100ML IJ ONE (09:07)
[2019-10-20] MEDS ORDERED: DOPamine 1600MCG/ML D5W 0 ML IV ONE (09:21)
[2019-10-20] MEDS ORDERED: PHENYLEPHRINE HCL 10 MG/ML VL ONE (09:21)
[2019-10-20] MEDS ORDERED: TICAGRELOR 90 MG TAB ONE (09:37)
[2019-10-20] MEDS ORDERED: SODIUM CHLORIDE 0.9% 1,000 ML IV SCH (10:39)
[2019-10-20] MEDS ORDERED: ACETAMINOPHEN 500 MG TAB PO PRN (10:45)
[2019-10-20] MEDS ORDERED: HYDROcodone-ACET 5/325MG TAB PO PRN (10:45)
[2019-10-20] MEDS ORDERED: NITROGLYCERIN 0.4 MG SL TAB SL PRN (10:45)
[2019-10-20] MEDS ORDERED: MORPHINE SULF INJ 2 MG/ML SYRINGE 1ML IV PRN (10:45)
[2019-10-20] MEDS ORDERED: ONDANSETRON HCL 4 MG/2 ML VIAL IV PRN (10:45)
[2019-10-20 13:09] VITALS: BP 137/90
[2019-10-20 14:37] VITALS: BP 137/90
[2019-10-20 17:39] VITALS: BP 128/89
[2019-10-20] MEDS: RANOLAZINE ER 500 MG TAB PO SCH (21:43)
[2019-10-20] MEDS: NITROGLYCERIN PO SCH (21:49)
[2019-10-20] MEDS ORDERED: ATORVASTATIN 20 MG TAB PO SCH (22:00)
[2019-10-20] MEDS ORDERED: cloNIDine HCL 0.1 MG TAB PO PRN (22:15)
[2019-10-20 22:40] VITALS: BP 160/86
[2019-10-21 05:00] VITALS: BP 148/73
[2019-10-21] MEDS: RANOLAZINE ER 500 MG TAB PO SCH (09:02)
[2019-10-21] MEDS: NITROGLYCERIN PO SCH (09:05)
[2019-10-21] MEDS ORDERED: AZILSARTAN MEDOXOMIL CHLORTHAL PO SCH (10:00)
[2019-10-21] MEDS ORDERED: PANTOPRAZOLE 40 MG TAB PO SCH (10:00)
[2019-10-21] MEDS ORDERED: TESTOSTERONE 1.62% TD SCH (10:00)
[2019-10-21] MEDS ORDERED: ASPirin-EC 81 mg tab PO SCH (10:00)
[2019-10-21] MEDS ORDERED: CHOLECALCIFEROL (VITD3) 1,000IU=25mCg TAB PO SCH (10:00)
[2019-10-21 12:27] VITALS: BP 129/80
[2019-10-21] MEDS ORDERED: TICA90TA PO (13:49)
[2019-10-21 13:50] VITALS: BP 129/80
== END 2019-10-21 16:55 | disposition home or self-care (01) | DRG 246 ==
LOC: CATH 07:02 → TELE-WESTW 11:26
PROVIDERS: ADMIT Internal Medicine Cardiovascular Disease; ATTEND Internal Medicine Cardiovascular Disease
PROC: 027035Z Dilation of Coronary Artery, One Artery with Two Drug-eluting Intraluminal Devices, Percutaneous Approach (ICD-10-PCS; principal; 2019-10-20)
PROC: B2111ZZ Fluoroscopy of Multiple Coronary Arteries using Low Osmolar Contrast (ICD-10-PCS; 2019-10-20)
PROC: B2131ZZ Fluoroscopy of Multiple Coronary Artery Bypass Grafts using Low Osmolar Contrast (ICD-10-PCS; 2019-10-20)
DX: I25.110 Atherosclerotic heart disease of native coronary artery with unstable angina pectoris (principal); I50.21 Acute systolic (congestive) heart failure; Z95.1 Presence of aortocoronary bypass graft; E78.5 Hyperlipidemia, unspecified; Z11.59 Encounter for screening for other viral diseases; I11.0 Hypertensive heart disease with heart failure
CPT/HCPCS: 87635; 92928; 92929; 93455; 99152; 99153; C1874; G0378; J2250

== ENCOUNTER → 2019-11-29 | Outpatient (CLI) | payer MEDICARE, OTHER ==
[~2019-11-29] MED LIST changes: +TICA90TA PO
== END | disposition home or self-care (01) ==
LOC: Rad HDHVI 08:01
PROVIDERS: ATTEND Internal Medicine Cardiovascular Disease
DX: R06.02 Shortness of breath (principal); Z95.1 Presence of aortocoronary bypass graft; Z95.5 Presence of coronary angioplasty implant and graft
CPT/HCPCS: 93306

== ENCOUNTER → 2019-12-06 | Outpatient (CLI) | payer MEDICARE, OTHER ==
[~2019-12-06] MED LIST changes: -ASPI-404 PO; +ASPI-543 PO
== END | disposition home or self-care (01) ==
LOC: Rad HDHVI 09:43
PROVIDERS: ATTEND Internal Medicine Cardiovascular Disease
DX: I25.10 Atherosclerotic heart disease of native coronary artery without angina pectoris (principal); I10 Essential (primary) hypertension; I25.2 Old myocardial infarction; E78.00 Pure hypercholesterolemia, unspecified; Z95.1 Presence of aortocoronary bypass graft; Z82.49 Family history of ischemic heart disease and other diseases of the circulatory system
CPT/HCPCS: 78452; 93017; 96374; A9500

== ENCOUNTER → 2019-12-12 | Outpatient (CLI) | payer MEDICARE, OTHER ==
[2019-12-12 10:06] VITALS: BP 162/86
--- NOTE | 2019-12-12 10:06 | NUR ---
Signature Attestation Statement: I BRISA GARCIA performed this procedure EECP on this patient. Addendum: 12/12/19 at 1007 by BRISA GARCIA HDHI2 Amended: Links added.
--- NOTE | 2019-12-12 10:08 | NUR ---
Signature Attestation Statement: I BRISA GARCIA performed this procedure EECP on this patient. Addendum: 12/12/19 at 1008 by BRISA GARCIA HDHI2 Amended: Links added.
[2019-12-12 10:48] VITALS: BP 159/83
--- NOTE | 2019-12-12 10:48 | NUR ---
Signature Attestation Statement: I BRISA GARCIA performed this procedure EECP on this patient. Addendum: 12/12/19 at 1048 by BRISA GARCIA HDHI2 Amended: Links added.
--- NOTE | 2019-12-12 10:59 | NUR ---
Signature Attestation Statement: I BRISA GARCIA performed this procedure EECP on this patient. Addendum: 12/12/19 at 1059 by BRISA GARCIA HDHI2 Amended: Links added.
== END | disposition home or self-care (01) ==
LOC: CHF HDHVI 09:28
PROVIDERS: ATTEND Internal Medicine Cardiovascular Disease
DX: I25.718 Atherosclerosis of autologous vein coronary artery bypass graft(s) with other forms of angina pectoris (principal); I50.23 Acute on chronic systolic (congestive) heart failure; R06.02 Shortness of breath; Z95.1 Presence of aortocoronary bypass graft; Z95.5 Presence of coronary angioplasty implant and graft
CPT/HCPCS: G0166

== ENCOUNTER → 2019-12-13 | Outpatient (CLI) | payer MEDICARE, OTHER ==
[2019-12-13 10:07] VITALS: BP 158/79
--- NOTE | 2019-12-13 10:07 | NUR ---
Signature Attestation Statement: I BRISA GARCIA performed this procedure EECP on this patient. Addendum: 12/13/19 at 1008 by BRISA GARCIA HDHI2 Amended: Links added.
--- NOTE | 2019-12-13 10:08 | NUR ---
Signature Attestation Statement: I BRISA GARCIA performed this procedure EECP on this patient. Addendum: 12/13/19 at 1009 by BRISA GARCIA HDHI2 Amended: Links added.
--- NOTE | 2019-12-13 10:49 | NUR ---
Signature Attestation Statement: I BRISA GARCIA performed this procedure EECP on this patient. Addendum: 12/13/19 at 1050 by BRISA GARCIA HDHI2 Amended: Links added.
[2019-12-13 10:50] VITALS: BP 170/88
--- NOTE | 2019-12-13 11:06 | NUR ---
Signature Attestation Statement: I BRISA GARCIA performed this procedure EECP on this patient. Addendum: 12/13/19 at 1107 by BRISA GARCIA HDHI2 Amended: Links added.
== END | disposition home or self-care (01) ==
LOC: CHF HDHVI 09:35
PROVIDERS: ATTEND Internal Medicine Cardiovascular Disease
DX: I25.718 Atherosclerosis of autologous vein coronary artery bypass graft(s) with other forms of angina pectoris (principal); I50.23 Acute on chronic systolic (congestive) heart failure; R06.02 Shortness of breath; Z95.1 Presence of aortocoronary bypass graft; Z95.5 Presence of coronary angioplasty implant and graft
CPT/HCPCS: G0166

== ENCOUNTER → 2019-12-14 | Outpatient (CLI) | payer MEDICARE, OTHER ==
[2019-12-14 09:59] VITALS: BP 177/81
--- NOTE | 2019-12-14 09:59 | NUR ---
Signature Attestation Statement: I BRISA GARCIA performed this procedure EECP on this patient. Addendum: 12/14/19 at 0959 by BRISA GARCIA HDHI2 Amended: Links added.
--- NOTE | 2019-12-14 10:00 | NUR ---
Signature Attestation Statement: I BRISA GARCIA performed this procedure EECP on this patient. Addendum: 12/14/19 at 1001 by BRISA GARCIA HDHI2 Amended: Links added.
--- NOTE | 2019-12-14 10:00 | NUR ---
Signature Attestation Statement: I BRISA GARCIA performed this procedure EECP on this patient. Addendum: 12/14/19 at 1000 by BRISA GARCIA HDHI2 Amended: Links added.
[2019-12-14 10:41] VITALS: BP 187/109
--- NOTE | 2019-12-14 10:41 | NUR ---
Signature Attestation Statement: I BRISA GARCIA performed this procedure EECP on this patient. Addendum: 12/14/19 at 1041 by BRISA GARCIA HDHI2 Amended: Links added.
--- NOTE | 2019-12-14 10:50 | NUR ---
Signature Attestation Statement: I BRISA GARCIA performed this procedure EECP on this patient. Addendum: 12/14/19 at 1051 by BRISA GARCIA HDHI2 Amended: Links added.
== END | disposition home or self-care (01) ==
LOC: CHF HDHVI 09:24
PROVIDERS: ATTEND Internal Medicine Cardiovascular Disease
DX: I25.718 Atherosclerosis of autologous vein coronary artery bypass graft(s) with other forms of angina pectoris (principal); I50.23 Acute on chronic systolic (congestive) heart failure; R06.02 Shortness of breath; Z95.1 Presence of aortocoronary bypass graft; Z95.5 Presence of coronary angioplasty implant and graft
CPT/HCPCS: G0166

== ENCOUNTER → 2019-12-15 | Outpatient (CLI) | payer MEDICARE, OTHER ==
[2019-12-15 09:53] VITALS: BP 131/70
--- NOTE | 2019-12-15 09:53 | NUR ---
Signature Attestation Statement: I BRISA GARCIA performed this procedure EECP on this patient. Addendum: 12/15/19 at 0953 by BRISA GARCIA HDHI2 Amended: Links added.
--- NOTE | 2019-12-15 09:54 | NUR ---
Signature Attestation Statement: I BRISA GARCIA performed this procedure EECP on this patient. Addendum: 12/15/19 at 0954 by BRISA GARCIA HDHI2 Amended: Links added.
--- NOTE | 2019-12-15 09:55 | NUR ---
Signature Attestation Statement: I BRISA GARCIA performed this procedure EECP on this patient. Addendum: 12/15/19 at 0955 by BRISA GARCIA HDHI2 Amended: Links added.
--- NOTE | 2019-12-15 10:36 | NUR ---
Signature Attestation Statement: I BRISA GARCIA performed this procedure EECP on this patient. Addendum: 12/15/19 at 1037 by BRISA GARCIA HDHI2 Amended: Links added.
[2019-12-15 10:37] VITALS: BP 166/89
--- NOTE | 2019-12-15 10:47 | NUR ---
Signature Attestation Statement: I BRISA GARCIA performed this procedure EECP on this patient. Addendum: 12/15/19 at 1047 by BRISA GARCIA HDHI2 Amended: Links added.
== END | disposition home or self-care (01) ==
LOC: CHF HDHVI 09:23
PROVIDERS: ATTEND Internal Medicine Cardiovascular Disease
DX: I25.718 Atherosclerosis of autologous vein coronary artery bypass graft(s) with other forms of angina pectoris (principal); I50.23 Acute on chronic systolic (congestive) heart failure; R06.02 Shortness of breath; Z95.1 Presence of aortocoronary bypass graft; Z95.5 Presence of coronary angioplasty implant and graft
CPT/HCPCS: G0166

== ENCOUNTER → 2019-12-16 | Outpatient (CLI) | payer MEDICARE, OTHER ==
[2019-12-16 12:31] LABS: Basophils # (auto) 0.1 10 ^3/uL (0-0.2); Basophils % (auto) 0.8 % (0.0-2.0); Eosinophils # (auto) 0 10 ^3/uL (0-0.8); Eosinophils % (auto) 0.4 % (0.0-7.0); Hematocrit 39.3 % (41.0-53.0); Hemoglobin 13.4 g/dL (13.5-17.5); Lymphocytes # (auto) 1.2 10 ^3/uL (0.4-5.4); Lymphocytes % (auto) 15.2 % (10.0-50.0); Mean Corpuscular Hgb Conc. 34.1 g/dL (32.0-36.0); Mean Corpuscular Volume 90.8 fL (80.0-100.0); Monocytes # (auto) 0.8 10 ^3/uL (0-1.3); Monocytes % (auto) 10.7 % (0.0-12.0); Neutrophils # (auto) 5.7 10 ^3/uL (1.6-8.6); Neutrophils % (auto) 72.9 % (37.0-80.0); Platelet Count (auto) 104 10^3/uL (140-450); Red Blood Cells 4.32 10^6/uL (4.5-5.90); Red Cell Distribution Width 13.2 % (11.8-14.3); White Blood Cell 7.8 10^3/uL (4.4-10.8)
[2019-12-16 12:49] LABS: Calcium 8.8 mg/dL (8.5-10.1)
== END | disposition home or self-care (01) ==
LOC: LAB 10:24
PROVIDERS: ATTEND Internal Medicine Cardiovascular Disease
DX: I10 Essential (primary) hypertension (principal); D64.9 Anemia, unspecified; Z79.899 Other long term (current) drug therapy
CPT/HCPCS: 36415; 80048; 83036; 85025

== ENCOUNTER → 2019-12-19 | Outpatient (CLI) | payer MEDICARE, OTHER ==
[2019-12-19 09:55] VITALS: BP 183/92
[2019-12-19 10:38] VITALS: BP 150/74
== END | disposition home or self-care (01) ==
LOC: CHF HDHVI 09:24
PROVIDERS: ATTEND Internal Medicine Cardiovascular Disease
DX: I25.718 Atherosclerosis of autologous vein coronary artery bypass graft(s) with other forms of angina pectoris (principal); I50.23 Acute on chronic systolic (congestive) heart failure; R06.02 Shortness of breath; Z95.1 Presence of aortocoronary bypass graft; Z95.5 Presence of coronary angioplasty implant and graft
CPT/HCPCS: G0166

== ENCOUNTER → 2019-12-20 | Outpatient (CLI) | payer MEDICARE, OTHER ==
[2019-12-20 09:52] VITALS: BP 134/66
--- NOTE | 2019-12-20 10:01 | NUR ---
Signature Attestation Statement: I BRISA GARCIA performed this procedure EECP on this patient. Addendum: 12/20/19 at 1001 by BRISA GARCIA HDHI2 Amended: Links added.
--- NOTE | 2019-12-20 10:02 | NUR ---
Signature Attestation Statement: I BRISA GARCIA performed this procedure EECP on this patient. Addendum: 12/20/19 at 1002 by BRISA GARCIA HDHI2 Amended: Links added.
[2019-12-20 10:28] VITALS: BP 160/79
--- NOTE | 2019-12-20 10:28 | NUR ---
Signature Attestation Statement: I BRISA GARCIA performed this procedure EECP on this patient. Addendum: 12/20/19 at 1028 by BRISA GARCIA HDHI2 Amended: Links added.
--- NOTE | 2019-12-20 10:40 | NUR ---
Signature Attestation Statement: I BRISA GARCIA performed this procedure EECP on this patient. Addendum: 12/20/19 at 1040 by BRISA GARCIA HDHI2 Amended: Links added.
== END | disposition home or self-care (01) ==
LOC: CHF HDHVI 09:20
PROVIDERS: ATTEND Internal Medicine Cardiovascular Disease
DX: I25.718 Atherosclerosis of autologous vein coronary artery bypass graft(s) with other forms of angina pectoris (principal); I50.23 Acute on chronic systolic (congestive) heart failure; R06.02 Shortness of breath; Z95.1 Presence of aortocoronary bypass graft; Z95.5 Presence of coronary angioplasty implant and graft
CPT/HCPCS: G0166

== ENCOUNTER → 2019-12-21 | Outpatient (CLI) | payer MEDICARE, OTHER ==
[2019-12-21 09:45] VITALS: BP 142/67
--- NOTE | 2019-12-21 09:45 | NUR ---
Signature Attestation Statement: I BRISA GARCIA performed this procedure EECP on this patient. Addendum: 12/21/19 at 0945 by BRISA GARCIA HDHI2 Amended: Links added.
--- NOTE | 2019-12-21 09:46 | NUR ---
Signature Attestation Statement: I BRISA GARCIA performed this procedure EECP on this patient. Addendum: 12/21/19 at 0946 by BRISA GARCIA HDHI2 Amended: Links added.
--- NOTE | 2019-12-21 09:47 | NUR ---
Signature Attestation Statement: I BRISA GARCIA performed this procedure EECP on this patient. Addendum: 12/21/19 at 0947 by BRISA GARCIA HDHI2 Amended: Links added.
[2019-12-21 10:29] VITALS: BP 160/77
--- NOTE | 2019-12-21 10:29 | NUR ---
Signature Attestation Statement: I BRISA GARCIA performed this procedure EECP on this patient. Addendum: 12/21/19 at 1029 by BRISA GARCIA HDHI2 Amended: Links added.
--- NOTE | 2019-12-21 10:39 | NUR ---
Signature Attestation Statement: I BRISA GARCIA performed this procedure EECP on this patient. Addendum: 12/21/19 at 1039 by BRISA GARCIA HDHI2 Amended: Links added.
== END | disposition home or self-care (01) ==
LOC: CHF HDHVI 09:20
PROVIDERS: ATTEND Internal Medicine Cardiovascular Disease
DX: I25.718 Atherosclerosis of autologous vein coronary artery bypass graft(s) with other forms of angina pectoris (principal); I50.23 Acute on chronic systolic (congestive) heart failure; R06.02 Shortness of breath; Z95.1 Presence of aortocoronary bypass graft; Z95.5 Presence of coronary angioplasty implant and graft
CPT/HCPCS: G0166

== ENCOUNTER → 2019-12-22 | Outpatient (CLI) | payer MEDICARE, OTHER ==
[2019-12-22 09:57] VITALS: BP 141/80
--- NOTE | 2019-12-22 09:58 | NUR ---
Signature Attestation Statement: I BRISA GARCIA performed this procedure EECP on this patient. Addendum: 12/22/19 at 0958 by BRISA GARCIA HDHI2 Amended: Links added.
--- NOTE | 2019-12-22 09:59 | NUR ---
Signature Attestation Statement: I BRISA GARCIA performed this procedure EECP on this patient. Addendum: 12/22/19 at 0959 by BRISA GARCIA HDHI2 Amended: Links added.
[2019-12-22 10:38] VITALS: BP 149/75
--- NOTE | 2019-12-22 10:38 | NUR ---
Signature Attestation Statement: I BRISA GARCIA performed this procedure EECP on this patient. Addendum: 12/22/19 at 1038 by BRISA GARCIA HDHI2 Amended: Links added.
--- NOTE | 2019-12-22 10:49 | NUR ---
Signature Attestation Statement: I BRISA GARCIA performed this procedure EECP on this patient. Addendum: 12/22/19 at 1049 by BRISA GARCIA HDHI2 Amended: Links added.
== END | disposition home or self-care (01) ==
LOC: CHF HDHVI 09:31
PROVIDERS: ATTEND Internal Medicine Cardiovascular Disease
DX: I25.718 Atherosclerosis of autologous vein coronary artery bypass graft(s) with other forms of angina pectoris (principal); I50.23 Acute on chronic systolic (congestive) heart failure; R06.02 Shortness of breath; Z95.1 Presence of aortocoronary bypass graft; Z95.5 Presence of coronary angioplasty implant and graft
CPT/HCPCS: G0166

== ENCOUNTER → 2019-12-23 | Outpatient (CLI) | payer MEDICARE, OTHER ==
[2019-12-23 09:57] VITALS: BP 158/74
--- NOTE | 2019-12-23 09:57 | NUR ---
Signature Attestation Statement: I BRISA GARCIA performed this procedure EECP on this patient. Addendum: 12/23/19 at 0958 by BRISA GARCIA HDHI2 Amended: Links added.
--- NOTE | 2019-12-23 09:59 | NUR ---
Signature Attestation Statement: I BRISA GARCIA performed this procedure EECP on this patient. Addendum: 12/23/19 at 0959 by BRISA GARCIA HDHI2 Amended: Links added.
--- NOTE | 2019-12-23 10:51 | NUR ---
Signature Attestation Statement: I BRISA GARCIA performed this procedure EECP on this patient. Addendum: 12/23/19 at 1052 by BRISA GARCIA HDHI2 Amended: Links added.
[2019-12-23 10:52] VITALS: BP 148/80
== END | disposition home or self-care (01) ==
LOC: CHF HDHVI 09:27
PROVIDERS: ATTEND Internal Medicine Cardiovascular Disease
DX: I25.718 Atherosclerosis of autologous vein coronary artery bypass graft(s) with other forms of angina pectoris (principal); I50.23 Acute on chronic systolic (congestive) heart failure; R06.02 Shortness of breath; Z95.1 Presence of aortocoronary bypass graft; Z95.5 Presence of coronary angioplasty implant and graft
CPT/HCPCS: G0166

== ENCOUNTER → 2019-12-26 | Outpatient (CLI) | payer MEDICARE, OTHER ==
[2019-12-26 10:03] VITALS: BP 146/70
--- NOTE | 2019-12-26 10:04 | NUR ---
Signature Attestation Statement: I BRISA GARCIA performed this procedure EECP on this patient. Addendum: 12/26/19 at 1004 by BRISA GARCIA HDHI2 Amended: Links added.
--- NOTE | 2019-12-26 10:05 | NUR ---
Signature Attestation Statement: I BRISA GARCIA performed this procedure EECP on this patient. Addendum: 12/26/19 at 1005 by BRISA GARCIA HDHI2 Amended: Links added.
--- NOTE | 2019-12-26 10:06 | NUR ---
Signature Attestation Statement: I BRISA GARCIA performed this procedure EECP on this patient. Addendum: 12/26/19 at 1006 by BRISA GACRIA HDHI2 Amended: Links added.
[2019-12-26 10:45] VITALS: BP 137/67
--- NOTE | 2019-12-26 10:45 | NUR ---
Signature Attestation Statement: I BRISA GARCIA performed this procedure EECP on this patient. Addendum: 12/26/19 at 1045 by BRISA GARCIA HDHI2 Amended: Links added.
--- NOTE | 2019-12-26 10:55 | NUR ---
Signature Attestation Statement: I BRISA GARCIA performed this procedure EECP on this patient. Addendum: 12/26/19 at 1056 by BRISA GARCIA HDHI2 Amended: Links added.
== END | disposition home or self-care (01) ==
LOC: CHF HDHVI 09:38
PROVIDERS: ATTEND Internal Medicine Cardiovascular Disease
DX: I25.718 Atherosclerosis of autologous vein coronary artery bypass graft(s) with other forms of angina pectoris (principal); I50.23 Acute on chronic systolic (congestive) heart failure; R06.02 Shortness of breath; Z95.1 Presence of aortocoronary bypass graft; Z95.5 Presence of coronary angioplasty implant and graft
CPT/HCPCS: G0166

== ENCOUNTER → 2019-12-27 | Outpatient (CLI) | payer MEDICARE, OTHER ==
[2019-12-27 09:54] VITALS: BP 145/73
--- NOTE | 2019-12-27 09:55 | NUR ---
Signature Attestation Statement: I BRISA GARCIA performed this procedure EECP on this patient. Addendum: 12/27/19 at 0955 by BRISA GARCIA HDHI2 Amended: Links added.
--- NOTE | 2019-12-27 09:56 | NUR ---
Signature Attestation Statement: I BRISA GARCIA performed this procedure EECP on this patient. Addendum: 12/27/19 at 0956 by BRISA GARCIA HDHI2 Amended: Links added.
[2019-12-27 10:33] VITALS: BP 161/79
--- NOTE | 2019-12-27 10:33 | NUR ---
Signature Attestation Statement: I BRISA GARCIA performed this procedure EECP on this patient. Addendum: 12/27/19 at 1033 by BRISA GARCIA HDHI2 Amended: Links added.
--- NOTE | 2019-12-27 10:44 | NUR ---
Signature Attestation Statement: I BRISA GARCIA performed this procedure EECP on this patient. Addendum: 12/27/19 at 1044 by BRISA GARCIA HDHI2 Amended: Links added.
== END | disposition home or self-care (01) ==
LOC: CHF HDHVI 09:27
PROVIDERS: ATTEND Internal Medicine Cardiovascular Disease
DX: I25.718 Atherosclerosis of autologous vein coronary artery bypass graft(s) with other forms of angina pectoris (principal); I50.23 Acute on chronic systolic (congestive) heart failure; R06.02 Shortness of breath; Z95.1 Presence of aortocoronary bypass graft; Z95.5 Presence of coronary angioplasty implant and graft
CPT/HCPCS: G0166

== ENCOUNTER → 2019-12-28 | Outpatient (CLI) | payer MEDICARE, OTHER ==
[2019-12-28 10:06] VITALS: BP 166/92
--- NOTE | 2019-12-28 10:57 | NUR ---
Signature Attestation Statement: I BRISA GARCIA performed this procedure EECP on this patient. Addendum: 12/28/19 at 1058 by BRISA GARCIA HDHI2 Amended: Links added.
--- NOTE | 2019-12-28 10:57 | NUR ---
Signature Attestation Statement: I BRISA GARCIA performed this procedure EECP on this patient. Addendum: 12/28/19 at 1057 by BRISA GARCIA HDHI2 Amended: Links added.
--- NOTE | 2019-12-28 10:58 | NUR ---
Signature Attestation Statement: I BRISA GARCIA performed this procedure EECP on this patient. Addendum: 12/28/19 at 1059 by BRISA GARCIA HDHI2 Amended: Links added.
[2019-12-28 11:02] VITALS: BP 141/82
--- NOTE | 2019-12-28 11:02 | NUR ---
Signature Attestation Statement: I BRISA GARCIA performed this procedure EECP on this patient. Addendum: 12/28/19 at 1102 by BRISA GARCIA HDHI2 Amended: Links added.
--- NOTE | 2019-12-28 11:03 | NUR ---
Signature Attestation Statement: I BRISA GARCIA performed this procedure EECP on this patient. Addendum: 12/28/19 at 1103 by BRISA GARCIA HDHI2 Amended: Links added.
== END | disposition home or self-care (01) ==
LOC: CHF HDHVI 09:30
PROVIDERS: ATTEND Internal Medicine Cardiovascular Disease
DX: I25.718 Atherosclerosis of autologous vein coronary artery bypass graft(s) with other forms of angina pectoris (principal); I50.23 Acute on chronic systolic (congestive) heart failure; R06.02 Shortness of breath; Z95.1 Presence of aortocoronary bypass graft; Z95.5 Presence of coronary angioplasty implant and graft
CPT/HCPCS: G0166

== ENCOUNTER → 2019-12-29 | Outpatient (CLI) | payer MEDICARE, OTHER ==
[2019-12-29 09:58] VITALS: BP 152/74
--- NOTE | 2019-12-29 09:58 | NUR ---
Signature Attestation Statement: I BRISA GARCIA performed this procedure EECP on this patient. Addendum: 12/29/19 at 0959 by BRISA GARCIA HDHI2 Amended: Links added.
--- NOTE | 2019-12-29 09:59 | NUR ---
Signature Attestation Statement: I BRISA GARCIA performed this procedure EECP on this patient. Addendum: 12/29/19 at 1000 by BRISA GARCIA HDHI2 Amended: Links added.
[2019-12-29 10:37] VITALS: BP 147/71
--- NOTE | 2019-12-29 10:37 | NUR ---
Signature Attestation Statement: I BRISA GARCIA performed this procedure EECP on this patient. Addendum: 12/29/19 at 1037 by BRISA GARCIA HDHI2 Amended: Links added.
--- NOTE | 2019-12-29 10:48 | NUR ---
Signature Attestation Statement: I BRISA GARCIA performed this procedure EECP on this patient. Addendum: 12/29/19 at 1048 by BRISA GARCIA HDHI2 Amended: Links added.
== END | disposition home or self-care (01) ==
LOC: CHF HDHVI 09:19
PROVIDERS: ATTEND Internal Medicine Cardiovascular Disease
DX: I25.718 Atherosclerosis of autologous vein coronary artery bypass graft(s) with other forms of angina pectoris (principal); I50.23 Acute on chronic systolic (congestive) heart failure; R06.02 Shortness of breath; Z95.1 Presence of aortocoronary bypass graft; Z95.5 Presence of coronary angioplasty implant and graft
CPT/HCPCS: G0166

== ENCOUNTER → 2019-12-30 | Outpatient (CLI) | payer MEDICARE, OTHER ==
[2019-12-30 09:56] VITALS: BP 147/68
--- NOTE | 2019-12-30 09:57 | NUR ---
Signature Attestation Statement: I BRISA GARCIA performed this procedure EECP on this patient. Addendum: 12/30/19 at 0957 by BRISA GARCIA HDHI2 Amended: Links added.
--- NOTE | 2019-12-30 09:57 | NUR ---
Signature Attestation Statement: I BRISA GARCIA performed this procedure EECP on this patient. Addendum: 12/30/19 at 0958 by BRISA GARCIA HDHI2 Amended: Links added.
--- NOTE | 2019-12-30 10:37 | NUR ---
Signature Attestation Statement: I BRISA GARCIA performed this procedure EECP on this patient. Addendum: 12/30/19 at 1038 by BRISA GARCIA HDHI2 Amended: Links added.
[2019-12-30 10:38] VITALS: BP 144/77
--- NOTE | 2019-12-30 10:47 | NUR ---
Signature Attestation Statement: I BRISA GARCIA performed this procedure EECP on this patient. Addendum: 12/30/19 at 1048 by BRISA GARCIA HDHI2 Amended: Links added.
== END | disposition home or self-care (01) ==
LOC: CHF HDHVI 09:29
PROVIDERS: ATTEND Internal Medicine Cardiovascular Disease
DX: I25.718 Atherosclerosis of autologous vein coronary artery bypass graft(s) with other forms of angina pectoris (principal); I50.23 Acute on chronic systolic (congestive) heart failure
CPT/HCPCS: G0166

== ENCOUNTER → 2020-01-02 | Outpatient (CLI) | payer MEDICARE, OTHER ==
[2020-01-02 09:52] VITALS: BP 129/66
--- NOTE | 2020-01-02 09:52 | NUR ---
Signature Attestation Statement: I BRISA GARCIA performed this procedure EECP on this patient. Addendum: 01/02/20 at 0953 by BRISA GARCIA HDHI2 Amended: Links added.
--- NOTE | 2020-01-02 09:53 | NUR ---
Signature Attestation Statement: I BRISA GARCIA performed this procedure EECP on this patient. Addendum: 01/02/20 at 0954 by BRISA GARCIA HDHI2 Amended: Links added.
[2020-01-02 10:28] VITALS: BP 123/69
--- NOTE | 2020-01-02 10:28 | NUR ---
Signature Attestation Statement: I BRISA GARCIA performed this procedure EECP on this patient. Addendum: 01/02/20 at 1028 by BRISA GARCIA HDHI2 Amended: Links added.
--- NOTE | 2020-01-02 10:43 | NUR ---
Signature Attestation Statement: I BRISA GARCIA performed this procedure EECP on this patient. Addendum: 01/02/20 at 1043 by BRISA GARCIA HDHI2 Amended: Links added.
== END | disposition home or self-care (01) ==
LOC: CHF HDHVI 09:27
PROVIDERS: ATTEND Internal Medicine Cardiovascular Disease
DX: I25.718 Atherosclerosis of autologous vein coronary artery bypass graft(s) with other forms of angina pectoris (principal); I50.23 Acute on chronic systolic (congestive) heart failure
CPT/HCPCS: G0166

== ENCOUNTER → 2020-01-03 | Outpatient (CLI) | payer MEDICARE, OTHER ==
[2020-01-03 09:59] VITALS: BP 141/75
--- NOTE | 2020-01-03 09:59 | NUR ---
Signature Attestation Statement: I BRISA GARCIA performed this procedure EECP on this patient. Addendum: 01/03/20 at 1000 by BRISA GARCIA HDHI2 Amended: Links added.
--- NOTE | 2020-01-03 10:01 | NUR ---
Signature Attestation Statement: I BRISA GARCIA performed this procedure EECP on this patient. Addendum: 01/03/20 at 1001 by BRISA GARCIA HDHI2 Amended: Links added.
--- NOTE | 2020-01-03 10:36 | NUR ---
Signature Attestation Statement: I BRISA GARCIA performed this procedure EECP on this patient. Addendum: 01/03/20 at 1037 by BRISA GARCIA HDHI2 Amended: Links added.
[2020-01-03 10:53] VITALS: BP 137/72
--- NOTE | 2020-01-03 10:53 | NUR ---
Signature Attestation Statement: I BRISA GARCIA performed this procedure EECP on this patient. Addendum: 01/03/20 at 1054 by BRISA GARCIA HDHI2 Amended: Links added.
== END | disposition home or self-care (01) ==
LOC: CHF HDHVI 09:30
PROVIDERS: ATTEND Internal Medicine Cardiovascular Disease
DX: I25.718 Atherosclerosis of autologous vein coronary artery bypass graft(s) with other forms of angina pectoris (principal); I50.23 Acute on chronic systolic (congestive) heart failure; R06.02 Shortness of breath; Z95.1 Presence of aortocoronary bypass graft; Z95.5 Presence of coronary angioplasty implant and graft
CPT/HCPCS: G0166

== ENCOUNTER → 2020-01-04 | Outpatient (CLI) | payer MEDICARE, OTHER ==
[2020-01-04 09:49] VITALS: BP 137/68
--- NOTE | 2020-01-04 09:50 | NUR ---
Signature Attestation Statement: I BRISA GARCIA performed this procedure EECP on this patient. Addendum: 01/04/20 at 0950 by BRISA GARCIA HDHI2 Amended: Links added.
--- NOTE | 2020-01-04 09:51 | NUR ---
Signature Attestation Statement: I BRISA GARCIA performed this procedure EECP on this patient. Addendum: 01/04/20 at 0951 by BRISA GARCIA HDHI2 Amended: Links added.
[2020-01-04 10:42] VITALS: BP 135/69
--- NOTE | 2020-01-04 10:42 | NUR ---
Signature Attestation Statement: I BRISA GARCIA performed this procedure EECP on this patient. Addendum: 01/04/20 at 1042 by BRISA GARCIA HDHI2 Amended: Links added.
--- NOTE | 2020-01-04 10:43 | NUR ---
Signature Attestation Statement: I BRISA GARCIA performed this procedure EECP on this patient. Addendum: 01/04/20 at 1043 by BRISA GARCIA HDHI2 Amended: Links added.
== END | disposition home or self-care (01) ==
LOC: CHF HDHVI 09:22
PROVIDERS: ATTEND Internal Medicine Cardiovascular Disease
DX: I25.718 Atherosclerosis of autologous vein coronary artery bypass graft(s) with other forms of angina pectoris (principal); I50.23 Acute on chronic systolic (congestive) heart failure; R06.02 Shortness of breath; Z95.5 Presence of coronary angioplasty implant and graft; Z95.1 Presence of aortocoronary bypass graft
CPT/HCPCS: G0166

== ENCOUNTER → 2020-01-05 | Outpatient (CLI) | payer MEDICARE, OTHER ==
[2020-01-05 09:57] VITALS: BP 124/64
--- NOTE | 2020-01-05 09:57 | NUR ---
Signature Attestation Statement: I BRISA GARCIA performed this procedure EECP on this patient. Addendum: 01/05/20 at 0957 by BRISA GARCIA HDHI2 Amended: Links added.
--- NOTE | 2020-01-05 09:57 | NUR ---
Signature Attestation Statement: I BRISA GARCIA performed this procedure EECP on this patient. Addendum: 01/05/20 at 0958 by BRISA GARCIA HDHI2 Amended: Links added.
--- NOTE | 2020-01-05 10:27 | NUR ---
Signature Attestation Statement: I BRISA GARCIA performed this procedure EECP on this patient. Addendum: 01/05/20 at 1028 by BRISA GARCIA HDHI2 Amended: Links added.
[2020-01-05 10:28] VITALS: BP 121/61
--- NOTE | 2020-01-05 10:39 | NUR ---
Signature Attestation Statement: I BRISA GARCIA performed this procedure EECP on this patient. Addendum: 01/05/20 at 1039 by BRISA GARCIA HDHI2 Amended: Links added.
== END | disposition home or self-care (01) ==
LOC: CHF HDHVI 09:21
PROVIDERS: ATTEND Internal Medicine Cardiovascular Disease
DX: I25.718 Atherosclerosis of autologous vein coronary artery bypass graft(s) with other forms of angina pectoris (principal); I50.23 Acute on chronic systolic (congestive) heart failure; R06.02 Shortness of breath; Z95.1 Presence of aortocoronary bypass graft; Z95.5 Presence of coronary angioplasty implant and graft
CPT/HCPCS: G0166

== ENCOUNTER → 2020-01-06 | Outpatient (CLI) | payer MEDICARE, OTHER ==
[2020-01-06 10:03] VITALS: BP 133/68
--- NOTE | 2020-01-06 10:04 | NUR ---
Signature Attestation Statement: I BRISA GARCIA performed this procedure EECP on this patient. Addendum: 01/06/20 at 1004 by BRISA GARCIA HDHI2 Amended: Links added.
--- NOTE | 2020-01-06 10:05 | NUR ---
Signature Attestation Statement: I BRISA GARCIA performed this procedure EECP on this patient. Addendum: 01/06/20 at 1005 by BRISA GARCIA HDHI2 Amended: Links added.
[2020-01-06 10:39] VITALS: BP 134/73
--- NOTE | 2020-01-06 10:39 | NUR ---
Signature Attestation Statement: I BRISA GARCIA performed this procedure EECP on this patient. Addendum: 01/06/20 at 1039 by BRISA GARCIA HDHI2 Amended: Links added.
--- NOTE | 2020-01-06 10:47 | NUR ---
Signature Attestation Statement: I BRISA GARCIA performed this procedure EECP on this patient. Addendum: 01/06/20 at 1047 by BRISA GARCIA HDHI2 Amended: Links added.
== END | disposition home or self-care (01) ==
LOC: CHF HDHVI 09:18
PROVIDERS: ATTEND Internal Medicine Cardiovascular Disease
DX: I25.718 Atherosclerosis of autologous vein coronary artery bypass graft(s) with other forms of angina pectoris (principal); I50.23 Acute on chronic systolic (congestive) heart failure; R06.02 Shortness of breath; Z95.1 Presence of aortocoronary bypass graft; Z95.5 Presence of coronary angioplasty implant and graft
CPT/HCPCS: G0166

== ENCOUNTER → 2020-01-09 | Outpatient (CLI) | payer MEDICARE, OTHER ==
[2020-01-09 10:01] VITALS: BP 149/74
[2020-01-09 10:40] VITALS: BP 150/70
== END | disposition home or self-care (01) ==
LOC: CHF HDHVI 09:17
PROVIDERS: ATTEND Internal Medicine Cardiovascular Disease
DX: I25.718 Atherosclerosis of autologous vein coronary artery bypass graft(s) with other forms of angina pectoris (principal); I50.23 Acute on chronic systolic (congestive) heart failure; R06.02 Shortness of breath; Z95.1 Presence of aortocoronary bypass graft; Z95.5 Presence of coronary angioplasty implant and graft
CPT/HCPCS: G0166

== ENCOUNTER → 2020-01-10 | Outpatient (CLI) | payer MEDICARE, OTHER ==
[2020-01-10 09:52] VITALS: BP 133/68
--- NOTE | 2020-01-10 09:52 | NUR ---
Signature Attestation Statement: I BRISA GARCIA performed this procedure EECP on this patient. Addendum: 01/10/20 at 0953 by BRISA GARCIA HDHI2 Amended: Links added.
--- NOTE | 2020-01-10 09:52 | NUR ---
Signature Attestation Statement: I BRISA GARCIA performed this procedure EECP on this patient. Addendum: 01/10/20 at 0952 by BRISA GARCIA HDHI2 Amended: Links added.
[2020-01-10 10:40] VITALS: BP 130/65
--- NOTE | 2020-01-10 10:40 | NUR ---
Signature Attestation Statement: I BRISA GARCIA performed this procedure EECP on this patient. Addendum: 01/10/20 at 1040 by BRISA GARCIA HDHI2 Amended: Links added.
== END | disposition home or self-care (01) ==
LOC: CHF HDHVI 09:21
PROVIDERS: ATTEND Internal Medicine Cardiovascular Disease
DX: I25.718 Atherosclerosis of autologous vein coronary artery bypass graft(s) with other forms of angina pectoris (principal); I50.23 Acute on chronic systolic (congestive) heart failure; R06.02 Shortness of breath; Z95.1 Presence of aortocoronary bypass graft; Z95.5 Presence of coronary angioplasty implant and graft
CPT/HCPCS: G0166

== ENCOUNTER → 2020-01-12 | Outpatient (CLI) | payer MEDICARE, OTHER ==
[2020-01-12 09:45] VITALS: BP 140/70
[2020-01-12 10:19] VITALS: BP 136/71
== END | disposition home or self-care (01) ==
LOC: CHF HDHVI 09:17
PROVIDERS: ATTEND Internal Medicine Cardiovascular Disease
DX: I25.718 Atherosclerosis of autologous vein coronary artery bypass graft(s) with other forms of angina pectoris (principal); I50.23 Acute on chronic systolic (congestive) heart failure; R06.02 Shortness of breath; Z95.1 Presence of aortocoronary bypass graft; Z95.5 Presence of coronary angioplasty implant and graft
CPT/HCPCS: G0166

== ENCOUNTER → 2020-01-13 | Outpatient (CLI) | payer MEDICARE, OTHER ==
[2020-01-13 08:28] VITALS: BP 149/77
--- NOTE | 2020-01-13 08:29 | NUR ---
Signature Attestation Statement: I BRISA GARCIA performed this procedure EECP on this patient. Addendum: 01/13/20 at 0830 by BRISA GARCIA HDHI2 Amended: Links added.
--- NOTE | 2020-01-13 08:29 | NUR ---
Signature Attestation Statement: I BRISA GARCIA performed this procedure EECP on this patient. Addendum: 01/13/20 at 0829 by BRISA GARCIA HDHI2 Amended: Links added.
[2020-01-13 09:03] VITALS: BP 144/83
--- NOTE | 2020-01-13 09:03 | NUR ---
Signature Attestation Statement: I BRISA GARCIA performed this procedure EECP on this patient. Addendum: 01/13/20 at 0903 by BRISA GARCIA HDHI2 Amended: Links added.
--- NOTE | 2020-01-13 09:22 | NUR ---
Signature Attestation Statement: I BRISA GARCIA performed this procedure EECP on this patient. Addendum: 01/13/20 at 0923 by BRISA GARCIA HDHI2 Amended: Links added.
== END | disposition home or self-care (01) ==
LOC: CHF HDHVI 08:00
PROVIDERS: ATTEND Internal Medicine Cardiovascular Disease
DX: I25.718 Atherosclerosis of autologous vein coronary artery bypass graft(s) with other forms of angina pectoris (principal); I50.23 Acute on chronic systolic (congestive) heart failure; R06.02 Shortness of breath; Z95.1 Presence of aortocoronary bypass graft; Z95.5 Presence of coronary angioplasty implant and graft
CPT/HCPCS: G0166

== ENCOUNTER → 2020-01-17 | Outpatient (CLI) | payer MEDICARE, OTHER ==
[2020-01-17 09:59] VITALS: BP 133/75
--- NOTE | 2020-01-17 10:00 | NUR ---
Signature Attestation Statement: I BRISA GARCIA performed this procedure EECP on this patient. Addendum: 01/17/20 at 1000 by BRISA GARCIA HDHI2 Amended: Links added.
--- NOTE | 2020-01-17 10:01 | NUR ---
Signature Attestation Statement: I BRISA GARCIA performed this procedure EECP on this patient. Addendum: 01/17/20 at 1001 by BRISA GARCIA HDHI2 Amended: Links added.
--- NOTE | 2020-01-17 10:01 | NUR ---
Signature Attestation Statement: I BRISA GARCIA performed this procedure EECP on this patient. Addendum: 01/17/20 at 1002 by BRISA GARCIA HDHI2 Amended: Links added.
[2020-01-17 10:37] VITALS: BP 149/81
--- NOTE | 2020-01-17 10:37 | NUR ---
Signature Attestation Statement: I BRISA GARCIA performed this procedure EECP on this patient. Addendum: 01/17/20 at 1037 by BRISA GARCIA HDHI2 Amended: Links added.
--- NOTE | 2020-01-17 10:49 | NUR ---
Signature Attestation Statement: I BRISA GARCIA performed this procedure EECP on this patient. Addendum: 01/17/20 at 1049 by BRISA GARCIA HDHI2 Amended: Links added.
== END | disposition home or self-care (01) ==
LOC: CHF HDHVI 09:20
PROVIDERS: ATTEND Internal Medicine Cardiovascular Disease
DX: I25.718 Atherosclerosis of autologous vein coronary artery bypass graft(s) with other forms of angina pectoris (principal); I50.23 Acute on chronic systolic (congestive) heart failure; R06.02 Shortness of breath; Z95.1 Presence of aortocoronary bypass graft; Z95.5 Presence of coronary angioplasty implant and graft
CPT/HCPCS: G0166

== ENCOUNTER → 2020-01-18 | Outpatient (CLI) | payer MEDICARE, OTHER ==
[2020-01-18 10:01] VITALS: BP 141/81
--- NOTE | 2020-01-18 10:01 | NUR ---
Signature Attestation Statement: I BRISA GARCIA performed this procedure EECP on this patient. Addendum: 01/18/20 at 1002 by BRISA GARCIA HDHI2 Amended: Links added.
--- NOTE | 2020-01-18 10:02 | NUR ---
Signature Attestation Statement: I BRISA GARCIA performed this procedure EECP on this patient. Addendum: 01/18/20 at 1003 by BRISA GARCIA HDHI2 Amended: Links added.
[2020-01-18 10:40] VITALS: BP 139/73
--- NOTE | 2020-01-18 10:40 | NUR ---
Signature Attestation Statement: I BRISA GARCIA performed this procedure EECP on this patient. Addendum: 01/18/20 at 1040 by BRISA GARCIA HDHI2 Amended: Links added.
--- NOTE | 2020-01-18 10:51 | NUR ---
Signature Attestation Statement: I BRISA GARCIA performed this procedure EECP on this patient. Addendum: 01/18/20 at 1051 by BRISA GARCIA HDHI2 Amended: Links added.
== END | disposition home or self-care (01) ==
LOC: CHF HDHVI 09:26
PROVIDERS: ATTEND Internal Medicine Cardiovascular Disease
DX: I25.718 Atherosclerosis of autologous vein coronary artery bypass graft(s) with other forms of angina pectoris (principal); I50.23 Acute on chronic systolic (congestive) heart failure; R06.02 Shortness of breath; Z95.1 Presence of aortocoronary bypass graft; Z95.5 Presence of coronary angioplasty implant and graft
CPT/HCPCS: G0166

== ENCOUNTER → 2020-01-19 | Outpatient (CLI) | payer MEDICARE, OTHER ==
[2020-01-19 09:51] VITALS: BP 148/81
--- NOTE | 2020-01-19 09:51 | NUR ---
Signature Attestation Statement: I BRISA GARCIA performed this procedure EECP on this patient. Addendum: 01/19/20 at 0952 by BRISA GARCIA HDHI2 Amended: Links added.
--- NOTE | 2020-01-19 09:51 | NUR ---
Signature Attestation Statement: I BRISA GARCIA performed this procedure EECP on this patient. Addendum: 01/19/20 at 0951 by BRISA GARCIA HDHI2 Amended: Links added.
--- NOTE | 2020-01-19 10:28 | NUR ---
Signature Attestation Statement: I BRISA GARCIA performed this procedure EECP on this patient. Addendum: 01/19/20 at 1029 by BRISA GARCIA HDHI2 Amended: Links added.
[2020-01-19 10:29] VITALS: BP 131/76
--- NOTE | 2020-01-19 10:40 | NUR ---
Signature Attestation Statement: I BRISA GARCIA performed this procedure EECP on this patient. Addendum: 01/19/20 at 1040 by BRISA GARCIA HDHI2 Amended: Links added.
== END | disposition home or self-care (01) ==
LOC: CHF HDHVI 09:21
PROVIDERS: ATTEND Internal Medicine Cardiovascular Disease
DX: I25.718 Atherosclerosis of autologous vein coronary artery bypass graft(s) with other forms of angina pectoris (principal); I50.23 Acute on chronic systolic (congestive) heart failure; R06.02 Shortness of breath; Z95.1 Presence of aortocoronary bypass graft; Z95.5 Presence of coronary angioplasty implant and graft
CPT/HCPCS: G0166

== ENCOUNTER → 2020-01-20 | Outpatient (CLI) | payer MEDICARE, OTHER ==
[~2020-01-20] VITALS: Ht 165.1 cm; Wt 83.9 kg
[2020-01-20 09:56] VITALS: BP 129/67
--- NOTE | 2020-01-20 09:56 | NUR ---
Signature Attestation Statement: I BRISA GARCIA performed this procedure EECP on this patient. Addendum: 01/20/20 at 0957 by BRISA GARCIA HDHI2 Amended: Links added.
--- NOTE | 2020-01-20 09:58 | NUR ---
Signature Attestation Statement: I BRISA GARCIA performed this procedure EECP on this patient. Addendum: 01/20/20 at 0958 by BRISA GARCIA HDHI2 Amended: Links added.
[2020-01-20 10:41] VITALS: BP 144/75
--- NOTE | 2020-01-20 10:41 | NUR ---
Signature Attestation Statement: I BRISA GARCIA performed this procedure EECP on this patient. Addendum: 01/20/20 at 1041 by BRISA GARCIA HDHI2 Amended: Links added.
--- NOTE | 2020-01-20 10:51 | NUR ---
Signature Attestation Statement: I BRISA GARCIA performed this procedure EECP on this patient. Addendum: 01/20/20 at 1052 by BRISA GARCIA HDHI2 Amended: Links added.
== END | disposition home or self-care (01) ==
LOC: Rad HDHVI 09:00
PROVIDERS: ATTEND Internal Medicine Cardiovascular Disease
DX: I11.0 Hypertensive heart disease with heart failure (principal); I50.23 Acute on chronic systolic (congestive) heart failure; I25.728 Atherosclerosis of autologous artery coronary artery bypass graft(s) with other forms of angina pectoris; I25.2 Old myocardial infarction; E78.00 Pure hypercholesterolemia, unspecified; Z95.1 Presence of aortocoronary bypass graft; Z95.810 Presence of automatic (implantable) cardiac defibrillator; Z79.899 Other long term (current) drug therapy; Z95.5 Presence of coronary angioplasty implant and graft
CPT/HCPCS: 78472; 96374; 96375; A9505; G0166

== ENCOUNTER → 2020-01-23 | Outpatient (CLI) | payer MEDICARE, OTHER ==
[2020-01-23 09:56] VITALS: BP 133/63
--- NOTE | 2020-01-23 09:56 | NUR ---
Signature Attestation Statement: I BRISA GARCIA performed this procedure EECP on this patient. Addendum: 01/23/20 at 0956 by BRISA GARCIA HDHI2 Amended: Links added.
--- NOTE | 2020-01-23 09:56 | NUR ---
Signature Attestation Statement: I BRISA GARCIA performed this procedure EECP on this patient. Addendum: 01/23/20 at 0957 by BRISA GARCIA HDHI2 Amended: Links added.
[2020-01-23 10:30] VITALS: BP 123/64
--- NOTE | 2020-01-23 10:30 | NUR ---
Signature Attestation Statement: I BRISA GARCIA performed this procedure EECP on this patient. Addendum: 01/23/20 at 1030 by BRISA GARCIA HDHI2 Amended: Links added.
--- NOTE | 2020-01-23 10:41 | NUR ---
Signature Attestation Statement: I BRISA GARCIA performed this procedure EECP on this patient. Addendum: 01/23/20 at 1041 by BRISA GARCIA HDHI2 Amended: Links added.
== END | disposition home or self-care (01) ==
LOC: CHF HDHVI 09:29
PROVIDERS: ATTEND Internal Medicine Cardiovascular Disease
DX: I25.718 Atherosclerosis of autologous vein coronary artery bypass graft(s) with other forms of angina pectoris (principal); I50.23 Acute on chronic systolic (congestive) heart failure; R06.02 Shortness of breath; Z95.1 Presence of aortocoronary bypass graft; Z95.5 Presence of coronary angioplasty implant and graft
CPT/HCPCS: G0166

== ENCOUNTER → 2020-01-24 | Outpatient (CLI) | payer MEDICARE, OTHER ==
[2020-01-24 10:05] VITALS: BP 121/68
--- NOTE | 2020-01-24 10:05 | NUR ---
Signature Attestation Statement: I BRISA GARCIA performed this procedure EECP on this patient. Addendum: 01/24/20 at 1006 by BRISA GARCIA HDHI2 Amended: Links added.
--- NOTE | 2020-01-24 10:07 | NUR ---
Signature Attestation Statement: I BRISA GARCIA performed this procedure EECP on this patient. Addendum: 01/24/20 at 1007 by BRISA GARCIA HDHI2 Amended: Links added.
[2020-01-24 10:46] VITALS: BP 124/65
--- NOTE | 2020-01-24 10:46 | NUR ---
Signature Attestation Statement: I BRISA GARCIA performed this procedure EECP on this patient. Addendum: 01/24/20 at 1046 by BRISA GARCIA HDHI2 Amended: Links added.
--- NOTE | 2020-01-24 10:59 | NUR ---
Signature Attestation Statement: I BRISA GARCIA performed this procedure EECP on this patient. Addendum: 01/24/20 at 1059 by BRISA GARCIA HDHI2 Amended: Links added.
== END | disposition home or self-care (01) ==
LOC: CHF HDHVI 09:41
PROVIDERS: ATTEND Internal Medicine Cardiovascular Disease
DX: I25.718 Atherosclerosis of autologous vein coronary artery bypass graft(s) with other forms of angina pectoris (principal); I50.23 Acute on chronic systolic (congestive) heart failure; R06.02 Shortness of breath; Z95.1 Presence of aortocoronary bypass graft; Z95.5 Presence of coronary angioplasty implant and graft
CPT/HCPCS: G0166

== ENCOUNTER → 2020-01-25 | Outpatient (CLI) | payer MEDICARE, OTHER ==
[2020-01-25 09:54] VITALS: BP 134/66
--- NOTE | 2020-01-25 09:54 | NUR ---
Signature Attestation Statement: I BRISA GARCIA performed this procedure EECP on this patient. Addendum: 01/25/20 at 0955 by BRISA GARCIA HDHI2 Amended: Links added.
--- NOTE | 2020-01-25 09:54 | NUR ---
Signature Attestation Statement: I BRISA GARCIA performed this procedure EECP on this patient. Addendum: 01/25/20 at 0954 by BRISA GARCIA HDHI2 Amended: Links added.
--- NOTE | 2020-01-25 09:55 | NUR ---
Signature Attestation Statement: I BRISA GARCIA performed this procedure EECP on this patient. Addendum: 01/25/20 at 0956 by BRISA GARCIA HDHI2 Amended: Links added.
[2020-01-25 10:36] VITALS: BP 118/66
--- NOTE | 2020-01-25 10:36 | NUR ---
Signature Attestation Statement: I BRISA GARCIA performed this procedure EECP on this patient. Addendum: 01/25/20 at 1036 by BRISA GARCIA HDHI2 Amended: Links added.
--- NOTE | 2020-01-25 10:45 | NUR ---
Signature Attestation Statement: I BRISA GARCIA performed this procedure EECP on this patient. Addendum: 01/25/20 at 1045 by BRISA GARCIA HDHI2 Amended: Links added.
== END | disposition home or self-care (01) ==
LOC: CHF HDHVI 09:19
PROVIDERS: ATTEND Internal Medicine Cardiovascular Disease
DX: I25.718 Atherosclerosis of autologous vein coronary artery bypass graft(s) with other forms of angina pectoris (principal); I50.23 Acute on chronic systolic (congestive) heart failure; R06.02 Shortness of breath; Z95.1 Presence of aortocoronary bypass graft; Z95.5 Presence of coronary angioplasty implant and graft
CPT/HCPCS: G0166

== ENCOUNTER → 2020-01-26 | Outpatient (CLI) | payer MEDICARE, OTHER ==
[2020-01-26 10:04] VITALS: BP 121/69
--- NOTE | 2020-01-26 10:04 | NUR ---
Signature Attestation Statement: I BRISA GARCIA performed this procedure EECP on this patient. Addendum: 01/26/20 at 1004 by BRISA GARCIA HDHI2 Amended: Links added.
--- NOTE | 2020-01-26 10:05 | NUR ---
Signature Attestation Statement: I BRISA GARCIA performed this procedure EECP on this patient. Addendum: 01/26/20 at 1005 by BRISA GARCIA HDHI2 Amended: Links added.
--- NOTE | 2020-01-26 10:38 | NUR ---
Signature Attestation Statement: I BRISA GARCIA performed this procedure EECP on this patient. Addendum: 01/26/20 at 1039 by BRISA GARCIA HDHI2 Amended: Links added.
[2020-01-26 10:39] VITALS: BP 116/69
--- NOTE | 2020-01-26 10:49 | NUR ---
Signature Attestation Statement: I BRISA GARCIA performed this procedure EECP on this patient. Addendum: 01/26/20 at 1049 by BRISA GARCIA HDHI2 Amended: Links added.
== END | disposition home or self-care (01) ==
LOC: CHF HDHVI 09:25
PROVIDERS: ATTEND Internal Medicine Cardiovascular Disease
DX: I25.718 Atherosclerosis of autologous vein coronary artery bypass graft(s) with other forms of angina pectoris (principal); I50.23 Acute on chronic systolic (congestive) heart failure; R06.02 Shortness of breath; Z95.5 Presence of coronary angioplasty implant and graft; Z95.1 Presence of aortocoronary bypass graft
CPT/HCPCS: G0166

== ENCOUNTER → 2020-01-27 | Outpatient (CLI) | payer MEDICARE, OTHER ==
[2020-01-27 08:32] VITALS: BP 140/63
--- NOTE | 2020-01-27 08:32 | NUR ---
Signature Attestation Statement: I BRISA GARCIA performed this procedure EECP on this patient. Addendum: 01/27/20 at 0833 by BRISA GARCIA HDHI2 Amended: Links added.
--- NOTE | 2020-01-27 08:33 | NUR ---
Signature Attestation Statement: I BRISA GARCIA performed this procedure EECP on this patient. Addendum: 01/27/20 at 0834 by BRISA GARCIA HDHI2 Amended: Links added.
[2020-01-27 09:10] VITALS: BP 117/61
--- NOTE | 2020-01-27 09:10 | NUR ---
Signature Attestation Statement: I BRISA GARCIA performed this procedure EECP on this patient. Addendum: 01/27/20 at 0910 by BRISA GARCIA HDHI2 Amended: Links added.
--- NOTE | 2020-01-27 09:27 | NUR ---
Signature Attestation Statement: I BRISA GARCIA performed this procedure EECP on this patient. Addendum: 01/27/20 at 0928 by BRISA GARCIA HDHI2 Amended: Links added.
== END | disposition home or self-care (01) ==
LOC: CHF HDHVI 08:06
PROVIDERS: ATTEND Internal Medicine Cardiovascular Disease
DX: I25.718 Atherosclerosis of autologous vein coronary artery bypass graft(s) with other forms of angina pectoris (principal); I50.23 Acute on chronic systolic (congestive) heart failure; R06.02 Shortness of breath; Z95.1 Presence of aortocoronary bypass graft; Z95.5 Presence of coronary angioplasty implant and graft
CPT/HCPCS: G0166

== ENCOUNTER → 2020-01-30 | Outpatient (CLI) | payer MEDICARE, OTHER ==
[2020-01-30 09:56] VITALS: BP 124/63
--- NOTE | 2020-01-30 09:56 | NUR ---
Signature Attestation Statement: I BRISA GARCIA performed this procedure EECP on this patient. Addendum: 01/30/20 at 0956 by BRISA GARCIA HDHI2 Amended: Links added.
--- NOTE | 2020-01-30 09:56 | NUR ---
Signature Attestation Statement: I BRISA GARCIA performed this procedure EECP on this patient. Addendum: 01/30/20 at 0957 by BRISA GARCIA HDHI2 Amended: Links added.
--- NOTE | 2020-01-30 10:33 | NUR ---
Signature Attestation Statement: I BRISA GARCIA performed this procedure EECP on this patient. Addendum: 01/30/20 at 1034 by BRISA GARCIA HDHI2 Amended: Links added.
[2020-01-30 10:34] VITALS: BP 139/65
--- NOTE | 2020-01-30 10:45 | NUR ---
Signature Attestation Statement: I BRISA GARCIA performed this procedure EECP on this patient. Addendum: 01/30/20 at 1046 by BRISA GARCIA HDHI2 Amended: Links added.
== END | disposition home or self-care (01) ==
LOC: CHF HDHVI 09:21
PROVIDERS: ATTEND Internal Medicine Cardiovascular Disease
DX: I25.718 Atherosclerosis of autologous vein coronary artery bypass graft(s) with other forms of angina pectoris (principal); I50.23 Acute on chronic systolic (congestive) heart failure; R06.02 Shortness of breath; Z95.1 Presence of aortocoronary bypass graft; Z95.5 Presence of coronary angioplasty implant and graft
CPT/HCPCS: G0166

== ENCOUNTER → 2020-01-31 | Outpatient (CLI) | payer MEDICARE, OTHER ==
[2020-01-31 10:10] VITALS: BP 135/71
[2020-01-31 10:50] VITALS: BP 121/69
== END | disposition home or self-care (01) ==
LOC: CHF HDHVI 09:33
PROVIDERS: ATTEND Internal Medicine Cardiovascular Disease
DX: I25.718 Atherosclerosis of autologous vein coronary artery bypass graft(s) with other forms of angina pectoris (principal); I50.23 Acute on chronic systolic (congestive) heart failure; R06.02 Shortness of breath; Z95.1 Presence of aortocoronary bypass graft; Z95.5 Presence of coronary angioplasty implant and graft
CPT/HCPCS: G0166

== ENCOUNTER → 2020-02-01 | Outpatient (CLI) | payer MEDICARE, OTHER ==
[2020-02-01 10:14] VITALS: BP 113/65
[2020-02-01 10:48] VITALS: BP 122/66
== END | disposition home or self-care (01) ==
LOC: CHF HDHVI 09:30
PROVIDERS: ATTEND Internal Medicine Cardiovascular Disease
DX: I25.718 Atherosclerosis of autologous vein coronary artery bypass graft(s) with other forms of angina pectoris (principal); I50.23 Acute on chronic systolic (congestive) heart failure; R06.02 Shortness of breath; I25.118 Atherosclerotic heart disease of native coronary artery with other forms of angina pectoris; Z95.1 Presence of aortocoronary bypass graft; Z95.5 Presence of coronary angioplasty implant and graft
CPT/HCPCS: G0166

== ENCOUNTER → 2020-02-24 | Outpatient (CLI) | payer MEDICARE, OTHER | END | disposition home or self-care (01) | LOC: LAB 08:56 | PROVIDERS: ATTEND Internal Medicine Cardiovascular Disease | DX: E11.9 Type 2 diabetes mellitus without complications (principal) | CPT/HCPCS: 36415; 83036 ==

== ENCOUNTER → 2020-05-21 | Outpatient (CLI) | payer MEDICARE, OTHER ==
[2020-05-21 11:35] LABS: Basophils # (auto) 0 10 ^3/uL (0-0.2); Basophils % (auto) 0.6 % (0.0-2.0); Eosinophils # (auto) 0 10 ^3/uL (0-0.8); Eosinophils % (auto) 0.7 % (0.0-7.0); Hemoglobin 15.1 g/dL (13.5-17.5); Lymphocytes # (auto) 1.4 10 ^3/uL (0.4-5.4); Lymphocytes % (auto) 20.9 % (10.0-50.0); Mean Corpuscular Hgb Conc. 35.1 g/dL (32.0-36.0); Mean Corpuscular Volume 93.9 fL (80.0-100.0); Monocytes # (auto) 0.7 10 ^3/uL (0-1.3); Monocytes % (auto) 9.6 % (0.0-12.0); Neutrophils # (auto) 4.7 10 ^3/uL (1.6-8.6); Neutrophils % (auto) 68.2 % (37.0-80.0); Nucleated Red Blood Cells % 0.2 %; Platelet Count (auto) 128 10^3/uL (140-450); Red Blood Cells 4.58 10^6/uL (4.5-5.90); Red Cell Distribution Width 13.2 % (11.8-14.3); White Blood Cell 6.9 10^3/uL (4.4-10.8)
[2020-05-21 11:37] LABS: Urine Blood Negative /uL (Negative); Urine Specific Gravity 1.017 (1.001-1.035)
[2020-05-21 11:54] LABS: Potassium 3.7 mmol/L (3.5-5.1)
[2020-05-21 12:09] LABS: Free T4 (Free Thyroxine) 1.15 ng/dL (0.89-1.76); Prostate Specific Antigen 3.7 ng/mL (0.0-4.0)
[2020-05-21 12:18] LABS: Albumin 4.1 g/dL (3.4-5.0); BUN/Creatinine Ratio 16.9; Bilirubin, Total 0.7 mg/dL (0.2-1.0); Calcium 9.2 mg/dL (8.5-10.1); Total Protein 8.1 g/dL (6.4-8.2)
== END | disposition home or self-care (01) ==
LOC: LAB 08:39
PROVIDERS: ATTEND Internal Medicine Cardiovascular Disease
DX: C61 Malignant neoplasm of prostate (principal); I10 Essential (primary) hypertension; E11.9 Type 2 diabetes mellitus without complications; E55.9 Vitamin D deficiency, unspecified; D51.3 Other dietary vitamin B12 deficiency anemia; D64.9 Anemia, unspecified; R00.2 Palpitations; R30.0 Dysuria
CPT/HCPCS: 36415; 80053; 80061; 81003; 82306; 82607; 83036; 84153; 84403; 84439; 84443; 85025

== ENCOUNTER 2020-11-11 05:37 | Emergency (ER) | payer MEDICARE, OTHER ==
[~2020-11-11] VITALS: Ht 180.3 cm; Wt 86.2 kg
[2020-11-11] MEDS ORDERED: LIDOCAINE W/ EPINEPHRINE 2% INJ 20ML VIAL ID ONE (07:00)
[2020-11-11] MEDS ORDERED: NEOMYCIN-BACITRACIN-POLYM UNITDOSE PKG TOP OINT TOP ONE (07:00)
[2020-11-11] MEDS ORDERED: SODIUM CHLORIDE 0.9% 1,000 ML IV ONE (07:00)
[2020-11-11 07:53] LABS: Basophils # (auto) 0.1 10 ^3/uL (0-0.2); Basophils % (auto) 0.5 % (0.0-2.0); Eosinophils # (auto) 0 10 ^3/uL (0-0.8); Eosinophils % (auto) 0.2 % (0.0-7.0); Hematocrit 46.3 % (41.0-53.0); Hemoglobin 16.2 g/dL (13.5-17.5); Lymphocytes # (auto) 1.2 10 ^3/uL (0.4-5.4); Lymphocytes % (auto) 8.9 % (10.0-50.0); Mean Corpuscular Hemoglobin 32.3 pg (28.0-32.0); Mean Corpuscular Hgb Conc. 34.9 g/dL (32.0-36.0); Mean Corpuscular Volume 92.5 fL (80.0-100.0); Monocytes # (auto) 0.9 10 ^3/uL (0-1.3); Monocytes % (auto) 6.8 % (0.0-12.0); Neutrophils # (auto) 10.9 10 ^3/uL (1.6-8.6); Neutrophils % (auto) 83.6 % (37.0-80.0); Platelet Count (auto) 116 10^3/uL (140-450); Red Cell Distribution Width 13.5 % (11.8-14.3)
[2020-11-11 08:09] LABS: Albumin 3.9 g/dL (3.4-5.0); BUN/Creatinine Ratio 22.2; Magnesium 2.5 mg/dL (1.6-2.6); Potassium 4.3 mmol/L (3.5-5.1)
[2020-11-11 08:11] LABS: INR 1.03 (0.9-1.15); Partial Thromboplastin Time 27.9 sec (23.0-31.2)
[2020-11-11 08:16] LABS: Bilirubin, Total 0.9 mg/dL (0.2-1.0)
[2020-11-11] MEDS ORDERED: LIDOCAINE 2% (LOCAL ANESTH.) PF 5ml SDV ONE (08:23)
[2020-11-11] MEDS ORDERED: LIDOCAINE W/ EPINEPHRINE 1% 20ML VIAL ONE (08:24)
[2020-11-11 11:00] VITALS: BP 165/85
[2020-11-11] MEDS ORDERED: TETANUS-DIPTH-ACEL PERTUSSIS 0.5ML SYR Tdap IM ONE (12:45)
== END 2020-11-11 13:36 | disposition home or self-care (01) ==
LOC: EDBD 05:37 → ER 05:37
DX: S01.311A Laceration without foreign body of right ear, initial encounter (principal); M54.12 Radiculopathy, cervical region; I25.10 Atherosclerotic heart disease of native coronary artery without angina pectoris; E04.1 Nontoxic single thyroid nodule; E11.21 Type 2 diabetes mellitus with diabetic nephropathy; I48.91 Unspecified atrial fibrillation; I10 Essential (primary) hypertension; I25.2 Old myocardial infarction; Z95.1 Presence of aortocoronary bypass graft; Z87.891 Personal history of nicotine dependence; Z79.82 Long term (current) use of aspirin; Z79.899 Other long term (current) drug therapy; W06.XXXA Fall from bed, initial encounter; Y93.89 Activity, other specified; Y92.89 Other specified places as the place of occurrence of the external cause; Y99.8 Other external cause status
CPT/HCPCS: 12013; 36415; 70450; 72125; 80053; 83735; 85025; 85049; 85610; 85730; 90471; 90715; 93005; 96360; 96361; 99285; J2001; J7030

== ENCOUNTER → 2020-11-19 | Outpatient (CLI) | payer MEDICARE, OTHER ==
[2020-11-19 13:59] LABS: Basophils # (auto) 0 10 ^3/uL (0-0.2); Basophils % (auto) 0.6 % (0.0-2.0); Eosinophils # (auto) 0 10 ^3/uL (0-0.8); Eosinophils % (auto) 0.6 % (0.0-7.0); Hematocrit 39.7 % (41.0-53.0); Hemoglobin 13.8 g/dL (13.5-17.5); Lymphocytes # (auto) 1.4 10 ^3/uL (0.4-5.4); Lymphocytes % (auto) 19.9 % (10.0-50.0); Mean Corpuscular Hemoglobin 32.7 pg (28.0-32.0); Mean Corpuscular Hgb Conc. 34.8 g/dL (32.0-36.0); Mean Corpuscular Volume 93.9 fL (80.0-100.0); Monocytes # (auto) 0.7 10 ^3/uL (0-1.3); Monocytes % (auto) 10.4 % (0.0-12.0); Neutrophils # (auto) 4.9 10 ^3/uL (1.6-8.6); Neutrophils % (auto) 68.5 % (37.0-80.0); Red Blood Cells 4.22 10^6/uL (4.5-5.90); Red Cell Distribution Width 13.3 % (11.8-14.3); White Blood Cell 7.1 10^3/uL (4.4-10.8)
[2020-11-19 14:02] LABS: Urine Blood Negative /uL (Negative); Urine Specific Gravity 1.014 (1.001-1.035)
[2020-11-19 14:34] LABS: Free T4 (Free Thyroxine) 1.34 ng/dL (0.89-1.76); Prostate Specific Antigen 3.18 ng/mL (0.0-4.0)
[2020-11-19 14:39] LABS: Potassium 4.8 mmol/L (3.5-5.1)
[2020-11-19 14:49] LABS: Albumin 3.8 g/dL (3.4-5.0); Bilirubin, Total 0.7 mg/dL (0.2-1.0); Calcium 8.7 mg/dL (8.5-10.1); Total Protein 7.6 g/dL (6.4-8.2)
== END | disposition home or self-care (01) ==
LOC: LAB 08:51
PROVIDERS: ATTEND Internal Medicine Cardiovascular Disease
DX: C61 Malignant neoplasm of prostate (principal); D51.3 Other dietary vitamin B12 deficiency anemia; I10 Essential (primary) hypertension; E11.9 Type 2 diabetes mellitus without complications; E55.9 Vitamin D deficiency, unspecified; D64.9 Anemia, unspecified; R00.2 Palpitations; R53.1 Weakness; R30.0 Dysuria
CPT/HCPCS: 36415; 80053; 80061; 81003; 82306; 82607; 83036; 84153; 84403; 84439; 84443; 85025; 85049

== ENCOUNTER → 2020-11-20 | Outpatient (CLI) | payer MEDICARE, OTHER ==
[~2020-11-20] MED LIST changes: +BACITRACIN TOP OINT 1 UD PKG TOP ONE
[2020-11-20 12:00] VITALS: BP 141/66
[2020-11-20 12:30] VITALS: BP 108/58
== END | disposition home or self-care (01) ==
LOC: CHF HDHVI 12:20
PROVIDERS: ATTEND Internal Medicine
DX: S01.311A Laceration without foreign body of right ear, initial encounter (principal); X58.XXXA Exposure to other specified factors, initial encounter; Y93.89 Activity, other specified; Y92.89 Other specified places as the place of occurrence of the external cause; Y99.8 Other external cause status
CPT/HCPCS: G0463

== ENCOUNTER → 2020-11-23 | Outpatient (CLI) | payer MEDICARE, OTHER ==
[~2020-11-23] MED LIST changes: -BACITRACIN TOP OINT 1 UD PKG TOP ONE
[2020-11-23 10:51] VITALS: BP 139/74
[2020-11-23 11:36] VITALS: BP 136/80
== END | disposition home or self-care (01) ==
LOC: CHF HDHVI 11:05
PROVIDERS: ATTEND Internal Medicine Cardiovascular Disease
DX: S01.311A Laceration without foreign body of right ear, initial encounter (principal); X58.XXXA Exposure to other specified factors, initial encounter; Y93.89 Activity, other specified; Y92.89 Other specified places as the place of occurrence of the external cause; Y99.8 Other external cause status
CPT/HCPCS: G0463

== ENCOUNTER → 2021-08-12 | Outpatient (CLI) | payer MEDICARE, OTHER ==
[2021-08-12 11:40] LABS: Basophils # (auto) 0 10 ^3/uL (0-0.2); Basophils % (auto) 0.3 % (0.0-2.0); Eosinophils # (auto) 0 10 ^3/uL (0-0.8); Eosinophils % (auto) 0.4 % (0.0-7.0); Hematocrit 43.4 % (41.0-53.0); Hemoglobin 15.1 g/dL (13.5-17.5); Lymphocytes % (auto) 27.9 % (10.0-50.0); Mean Corpuscular Hemoglobin 32.2 pg (28.0-32.0); Mean Corpuscular Hgb Conc. 34.9 g/dL (32.0-36.0); Mean Corpuscular Volume 92.3 fL (80.0-100.0); Monocytes # (auto) 0.7 10 ^3/uL (0-1.3); Monocytes % (auto) 9.6 % (0.0-12.0); Neutrophils # (auto) 4.5 10 ^3/uL (1.6-8.6); Neutrophils % (auto) 61.8 % (37.0-80.0); Nucleated Red Blood Cells % 0.1 %; Red Cell Distribution Width 13.1 % (11.8-14.3); White Blood Cell 7.3 10^3/uL (4.4-10.8)
[2021-08-12 11:54] LABS: Urine Blood Negative /uL (Negative); Urine Specific Gravity 1.011 (1.001-1.035)
[2021-08-12 12:17] LABS: Potassium 3.8 mmol/L (3.5-5.1)
[2021-08-12 12:21] LABS: Free T4 (Free Thyroxine) 1.53 ng/dL (0.89-1.76)
[2021-08-12 12:27] LABS: Albumin 3.6 g/dL (3.4-5.0); BUN/Creatinine Ratio 16.5; Bilirubin, Total 0.8 mg/dL (0.2-1.0); Total Protein 7.4 g/dL (6.4-8.2)
[2021-08-12 12:42] LABS: Prostate Specific Antigen 5.27 ng/mL (0.0-4.0)
== END | disposition home or self-care (01) ==
LOC: LAB 09:31
PROVIDERS: ATTEND Internal Medicine Cardiovascular Disease
DX: C61 Malignant neoplasm of prostate (principal); E11.9 Type 2 diabetes mellitus without complications; D51.3 Other dietary vitamin B12 deficiency anemia; D64.9 Anemia, unspecified; E55.9 Vitamin D deficiency, unspecified; I10 Essential (primary) hypertension; R00.2 Palpitations; R53.1 Weakness; R30.0 Dysuria
CPT/HCPCS: 36415; 80053; 80061; 81003; 82306; 82607; 83036; 84153; 84154; 84403; 84439; 84443; 85025

== ENCOUNTER → 2021-12-16 | Outpatient (CLI) | payer MEDICARE, OTHER | END | disposition home or self-care (01) | LOC: Rad HDHVI 09:01 | PROVIDERS: ATTEND Internal Medicine Cardiovascular Disease | DX: I08.1 Rheumatic disorders of both mitral and tricuspid valves (principal); I10 Essential (primary) hypertension | CPT/HCPCS: 93306 ==

== ENCOUNTER → 2021-12-23 | Outpatient (CLI) | payer MEDICARE, OTHER ==
[~2021-12-23] VITALS: Ht 195.6 cm; Wt 83.9 kg
== END | disposition home or self-care (01) ==
LOC: Rad HDHVI 08:57
PROVIDERS: ATTEND Internal Medicine Cardiovascular Disease
DX: I48.91 Unspecified atrial fibrillation (principal); E11.9 Type 2 diabetes mellitus without complications; E78.00 Pure hypercholesterolemia, unspecified; I25.10 Atherosclerotic heart disease of native coronary artery without angina pectoris; I25.2 Old myocardial infarction; E78.5 Hyperlipidemia, unspecified; I11.0 Hypertensive heart disease with heart failure; I50.43 Acute on chronic combined systolic (congestive) and diastolic (congestive) heart failure; Z95.1 Presence of aortocoronary bypass graft; Z82.49 Family history of ischemic heart disease and other diseases of the circulatory system
CPT/HCPCS: 78452; 93017; 96374; A9500

== ENCOUNTER → 2021-12-30 | Outpatient (CLI) | payer MEDICARE, OTHER | END | disposition home or self-care (01) | LOC: Rad HDHVI 09:01 | PROVIDERS: ATTEND Internal Medicine Cardiovascular Disease | DX: I65.23 Occlusion and stenosis of bilateral carotid arteries (principal); E78.5 Hyperlipidemia, unspecified; I10 Essential (primary) hypertension | CPT/HCPCS: 93880 ==

== ENCOUNTER → 2022-03-07 | Outpatient (CLI) | payer MEDICARE, OTHER ==
[2022-03-07 11:36] LABS: Urine Blood Negative /uL (Negative); Urine Specific Gravity 1.019 (1.001-1.035)
[2022-03-07 11:41] LABS: Albumin 3.7 g/dL (3.4-5.0); Potassium 3.9 mmol/L (3.5-5.1)
[2022-03-07 11:45] LABS: BUN/Creatinine Ratio 19.5; Bilirubin, Total 0.8 mg/dL (0.2-1.0); Total Protein 7.4 g/dL (6.4-8.2)
[2022-03-07 11:52] LABS: Basophils # (auto) 0.1 10 ^3/uL (0-0.2); Eosinophils # (auto) 0.1 10 ^3/uL (0-0.8); Eosinophils % (auto) 0.9 % (0.0-7.0); Free T4 (Free Thyroxine) 1.56 ng/dL (0.89-1.76); Hematocrit 44.8 % (41.0-53.0); Hemoglobin 15.2 g/dL (13.5-17.5); Lymphocytes # (auto) 1.4 10 ^3/uL (0.4-5.4); Lymphocytes % (auto) 21.5 % (10.0-50.0); Mean Corpuscular Hemoglobin 32.2 pg (28.0-32.0); Mean Corpuscular Hgb Conc. 33.9 g/dL (32.0-36.0); Mean Corpuscular Volume 94.9 fL (80.0-100.0); Monocytes # (auto) 0.7 10 ^3/uL (0-1.3); Monocytes % (auto) 9.9 % (0.0-12.0); Neutrophils # (auto) 4.5 10 ^3/uL (1.6-8.6); Neutrophils % (auto) 66.7 % (37.0-80.0); Red Blood Cells 4.71 10^6/uL (4.5-5.90); Red Cell Distribution Width 13.4 % (11.8-14.3); White Blood Cell 6.7 10^3/uL (4.4-10.8)
[2022-03-07 11:55] LABS: Prostate Specific Antigen 6.6 ng/mL (0.0-4.0)
== END | disposition home or self-care (01) ==
LOC: LAB 08:01
PROVIDERS: ATTEND Internal Medicine Cardiovascular Disease
DX: G45.9 Transient cerebral ischemic attack, unspecified (principal); E55.9 Vitamin D deficiency, unspecified
CPT/HCPCS: 36415; 80053; 80061; 81003; 82306; 82607; 83036; 84153; 84154; 84403; 84439; 84443; 85025

== ENCOUNTER → 2022-06-04 | Outpatient (CLI) | payer MEDICARE, OTHER | END | disposition home or self-care (01) | LOC: Rad HDHVI 08:52 | PROVIDERS: ATTEND Internal Medicine Cardiovascular Disease | DX: I70.203 Unspecified atherosclerosis of native arteries of extremities, bilateral legs (principal); E78.5 Hyperlipidemia, unspecified | CPT/HCPCS: 93925 ==

== ENCOUNTER → 2023-01-05 | Outpatient (CLI) | payer MEDICARE, OTHER ==
[~2023-01-05] VITALS: Ht 165.1 cm; Wt 83.9 kg
[~2023-01-05] MED LIST changes: +OMEG-20 PO; -OMEG100078 PO; -SIMV-13 PO; +SIMV40TA18 PO
== END | disposition home or self-care (01) ==
LOC: Rad HDHVI 08:51
PROVIDERS: ATTEND Internal Medicine Cardiovascular Disease
DX: I11.0 Hypertensive heart disease with heart failure (principal); I50.43 Acute on chronic combined systolic (congestive) and diastolic (congestive) heart failure; I25.10 Atherosclerotic heart disease of native coronary artery without angina pectoris; I25.2 Old myocardial infarction; I25.5 Ischemic cardiomyopathy; E11.21 Type 2 diabetes mellitus with diabetic nephropathy; Z95.1 Presence of aortocoronary bypass graft; Z82.49 Family history of ischemic heart disease and other diseases of the circulatory system
CPT/HCPCS: 78452; 93017; 96374; A9500

== ENCOUNTER → 2024-04-18 | Outpatient (CLI) | payer MEDICARE, OTHER | END | disposition home or self-care (01) | LOC: Rad HDHVI 11:06 | PROVIDERS: ATTEND Internal Medicine Cardiovascular Disease | DX: I11.0 Hypertensive heart disease with heart failure (principal); I50.43 Acute on chronic combined systolic (congestive) and diastolic (congestive) heart failure | CPT/HCPCS: 93880 ==

== ENCOUNTER → 2024-04-19 | Outpatient (CLI) | payer MEDICARE, OTHER ==
[~2024-04-19] VITALS: Ht 160 cm; Wt 86.6 kg
== END | disposition home or self-care (01) ==
LOC: Rad HDHVI 09:36
PROVIDERS: ATTEND Internal Medicine Cardiovascular Disease
DX: I25.10 Atherosclerotic heart disease of native coronary artery without angina pectoris (principal); I11.0 Hypertensive heart disease with heart failure; I50.43 Acute on chronic combined systolic (congestive) and diastolic (congestive) heart failure; I25.2 Old myocardial infarction; I25.5 Ischemic cardiomyopathy; R07.89 Other chest pain; E78.00 Pure hypercholesterolemia, unspecified; U07.1 COVID-19; E11.22 Type 2 diabetes mellitus with diabetic chronic kidney disease; Z95.810 Presence of automatic (implantable) cardiac defibrillator; Z95.1 Presence of aortocoronary bypass graft; Z82.49 Family history of ischemic heart disease and other diseases of the circulatory system
CPT/HCPCS: 78452; 93017; 96374; A9500

== ENCOUNTER → 2024-04-20 | Outpatient (CLI) | payer MEDICARE, OTHER ==
--- NOTE | 2024-04-20 13:53 | DVHSR ---
APPROVED REPORT EXAM: Two-dimensional and M-mode echocardiogram with Doppler and color Doppler. Surgery/Intervention CABG: DIMENSIONS LVDd4.5 (3.8-5.7cm)LA (2D)4.2 (1.9-4.0cm)Aortic Root3.5 (2.0-3.7cm) LVDs3.6 (2.5-4.0cm)LA (MM) (1.9-4.0cm)Aortic Cusp Exc1.6 (1.5-2.0cm) EF (%) 45.0 (55-70%)Rt. Atrium4.4 (1.9-4.0cm)Asc. Aorta cm IVSd1.3 (0.7-1.1cm)RV (D) (1.8-2.4cm) PWd1.0 (0.7-1.1cm) Mitral Valve MitralMitral Stenosis E wave0.92m/sMV Mean GR.mmHg E/A ratio0.02D MVAcm2 DECEL [id number] 1/2 Timems Aortic Valve Aortic ValveAortic Stenosis V10.70m/Brent Mean GR.3mmHg V21.03m/Brent Peak GR.4mmHg LVOT Diameter1.9 (1.8-2.4cm)Doppler AVA1.93cm2 Pulmonic Valve V20.84m/s Tricuspid Valve TR Velocity2.55m/s [id number] LEFT VENTRICLE The left ventricle is normal size. The left ventricle is normal in structure. The Ejection Fraction is below normal limits. The Ejection Fraction is 40-45%. RIGHT VENTRICLE The right ventricle is normal size. ATRIA The left atrium is enlarged. The right atrium is enlarged. The interatrial septum is intact with no evidence for an atrial septal defect. MITRAL VALVE The mitral valve is normal in structure. Mitral regurgitation is mild. PULMONIC VALVE The pulmonic valve is not well visualized. There is trace to mild pulmonic valvular regurgitation. TRICUSPID VALVE The tricuspid valve is grossly normal. There is trace to mild tricuspid regurgitation. Right ventricular systolic pressure is less than 30 mmHg. AORTIC VALVE The aortic valve opens well. The aortic valve is mildly sclerotic. There is trace aortic regurgitation. GREAT VESSELS The aortic root is normal size. PERICARDIAL EFFUSION There is no pericardial effusion. Conclusion EF 40% LAE NILSON MILD TR MILD MR
== END | disposition home or self-care (01) ==
LOC: Rad HDHVI 10:47
PROVIDERS: ATTEND Internal Medicine Cardiovascular Disease
DX: I08.8 Other rheumatic multiple valve diseases (principal); I25.5 Ischemic cardiomyopathy; Z95.1 Presence of aortocoronary bypass graft
CPT/HCPCS: 93306

== ENCOUNTER 2025-03-09 08:43 | Outpatient (CLI) | payer MEDICARE, OTHER ==
--- NOTE | 2025-03-09 10:58 | DVHSR ---
APPROVED REPORT EXAM: Two-dimensional and M-mode echocardiogram with Doppler and color Doppler. DIMENSIONS LVDd4.9 (3.8-5.7cm)LA (2D)4.8 (1.9-4.0cm)Aortic Root3.5 (2.0-3.7cm) LVDs4.0 (2.5-4.0cm)LA (MM) (1.9-4.0cm)Aortic Cusp Exc1.4 (1.5-2.0cm) EF (%) 40.0 (55-70%)Rt. Atrium5.1 (1.9-4.0cm)Asc. Aorta cm IVSd1.2 (0.7-1.1cm)RV (D) (1.8-2.4cm) PWd1.2 (0.7-1.1cm) Mitral Valve MitralMitral Stenosis E wave1.30m/sMV Mean GR.mmHg A wave0.40m/sMV Peak GR.mmHg E/A ratio3.32D MVAcm2 Aortic Valve Aortic ValveAortic Stenosis V10.60m/Brent Mean GR.4mmHg V21.20m/Brent Peak GR.6mmHg LVOT Diameter2.1 (1.8-2.4cm)Doppler AVA1.73cm2 Pulmonic Valve V20.50m/s Tricuspid Valve TR Velocity2.80m/s [id number] LEFT VENTRICLE The left ventricle is normal size. There is borderline left ventricular hypertrophy. The Ejection Fraction is 35-45%. RIGHT VENTRICLE The right ventricle is normal size. ATRIA The left atrium is enlarged. The right atrium is enlarged. The interatrial septum is intact with no evidence for an atrial septal defect. MITRAL VALVE The mitral valve is normal in structure and function. Mitral regurgitation is mild. PULMONIC VALVE The pulmonic valve is not well visualized. TRICUSPID VALVE The tricuspid valve is grossly normal. There is mild tricuspid regurgitation. AORTIC VALVE The aortic valve opens well. No aortic regurgitation is present. GREAT VESSELS The aortic root is normal size. PERICARDIAL EFFUSION There is no pericardial effusion. Conclusion LVH MILD TR MILD MR EF 40% LAE NILSON
== END 2025-03-09 17:00 | disposition home or self-care (01) ==
LOC: Rad HDHVI 08:43
PROVIDERS: ATTEND Internal Medicine Cardiovascular Disease
DX: I08.1 Rheumatic disorders of both mitral and tricuspid valves (principal); I11.9 Hypertensive heart disease without heart failure; R06.02 Shortness of breath
CPT/HCPCS: 93306

== ENCOUNTER 2025-03-15 09:18 | Outpatient (CLI) | payer MEDICARE, OTHER ==
[~2025-03-15] VITALS: Ht 165.1 cm; Wt 83.0 kg
--- NOTE | 2025-03-17 16:06 | DVHSR ---
APPROVED REPORT Exam: Nuclear Stress Test Indication: CAD Ht: 5 ft 5 in Wt: 183 lbs BSA: 1.90 m2 HR: 83 bpm BP: 144/71 mmHg BMI: 30.44 Rhythm: Atrial Fibrillation, PVC Medical History Medical History: SC, CABG, HTN, SOB, CHF, Stent, Hypercholesterolemia, Diabetes, Atrial Fibrillation Medications: Edarbyclor, Simvastatin, Ranexa, Tudorza, Xarelto, Jardiance, Metformin, Kerendia, Entresto, Lasix, Potassium, Nitrobid, Fish Oil, Vit D3, AREDs, Arginext Allergies: No known drug allergies Cardiac Risk Factors: Family Hx of CAD Stress Test Details Stress Test: Exercise stress testing was performed using a modified Reji protocol. HR Resting HR: 83 bpm Max Heart Rate (APMHR): 137.461268 bpm Max HR Achieved: 139 bpm Target HR (85% APMHR): 116.736448 bpm % of APMHR: 101.46 Recovery HR: 88 bpm HR response to stress: Normal HR response to stress BP Resting BP: 144/71 mmHg Max BP: 166/82 mmHg Recovery BP: 166/82 mmHg BP response to stress: resting hypertension- appropriate response ECG Resting ECG: Atrial Fibrillation Stress ECG: Atrial Fibrillation Arrhythmia: occasional PVC Recovery ECG: Atrial Fibrillation Clinical Reason for Termination: target HR achieved, Leg pain Stress Symptoms: None Exercise duration: 5 min 32 sec Exercise capacity: 7.00 METs Stress ECG Conclusion NON ISCHEMIC CLINICAL RESPONSE NON ISCHEMIC ECG RESPONSE FIXED INFERIOR DEFECT PARTIAL LATERAL WALL REVERSIBILITY EF 30% EF >55% NM EXAM: Myocardial Perfusion REST/STRESS Imaging Protocol: Rest Tc-99m/Stress Tc-99m 1 day Resting Data Rest SPECT myocardial perfusion imaging was performed in supine position 30 minutes following the intravenous injection of 10.76 mCi of Tc-99m Sestamibi. Time of rest injection: 09 Date: 03/15/2025 Time of rest imagin Date: 03/15/2025 Administration Route: IV Administration Site: Left AC Exercise Stress At peak stress, the patient was injected intravenously with 32.0 mCi of Tc-99m Sestamibi. Time of stress injection: 110 Date: 03/15/2025 Time of stress imagin Date: 03/15/2025 Administration Route: IV Administration Site: Left AC Heart Rate at time of stress injection: 133 bpm. Patient continued to exercise for 1 minute(s). Gated Stress SPECT was performed 15 minutes after stress injection. The images were gated to evaluate regional wall motion and calculate left ventricular ejection fraction. Comments Cardiolite injection at 4 minutes, 37 seconds into test. Nuclear Conclusion NON ISCHEMIC CLINICAL RESPONSE NON ISCHEMIC ECG RESPONSE FIXED INFERIOR DEFECT PARTIAL LATERAL WALL REVERSIBILITY EF 30% EF >55%
== END 2025-03-15 17:00 | disposition home or self-care (01) ==
LOC: Rad HDHVI 09:18
PROVIDERS: ATTEND Internal Medicine Cardiovascular Disease
DX: I48.91 Unspecified atrial fibrillation (principal); I49.3 Ventricular premature depolarization; I11.0 Hypertensive heart disease with heart failure; I50.43 Acute on chronic combined systolic (congestive) and diastolic (congestive) heart failure; I48.0 Paroxysmal atrial fibrillation; I25.10 Atherosclerotic heart disease of native coronary artery without angina pectoris; I25.5 Ischemic cardiomyopathy; I25.2 Old myocardial infarction; E11.9 Type 2 diabetes mellitus without complications; E78.00 Pure hypercholesterolemia, unspecified; R06.02 Shortness of breath; Z95.1 Presence of aortocoronary bypass graft; Z95.810 Presence of automatic (implantable) cardiac defibrillator; Z82.49 Family history of ischemic heart disease and other diseases of the circulatory system
CPT/HCPCS: 78452; 93017; A9500; 96374